=== PATIENT | male | born 1970 | race Caucasian/White ===

== ENCOUNTER 2020-06-27 19:15 | Emergency (ER) | payer SELFPAY ==
[2020-06-27 19:26] VITALS: BP 121/73; PULSE 124; RESP 14; TEMP 36.7; O2SAT 96; BMI 26.2
--- NOTE | 2020-06-27 19:43 | XR_ITS ---
WS: [id number] Left foot, 3 views, 06/27/2020 Clinical Data: injury Comparison: Left foot, 12/06/2018. Findings: There are erosions of the lateral aspects of the second through fifth metatarsals. There is an erosio n of the medial aspect of the distal left first metatarsal. There are hammertoes deformities of the s econd through fifth toes. No fractures or dislocations are seen. No definite osteomyelitis is present . There is no significant soft tissue swelling. XR/XR foot LT min 3V* [id number] Impression: 1. Erosive changes of the first through fifth metatarsal heads which are most l ikely arthritic. 2. Hammertoes deformity second through fifth toes.
--- NOTE | 2020-06-27 19:44 | W.ED.EXTPRO ---
HPI - Extremity Problem General: Chief complaint: Extremity Injury, Lower Stated complaint: hole in foot/ possible infection Time Seen by Provider: 06/27/20 19:39 Source: patient Mode of arrival: ambulatory Limitations: no limitations History of Present Illness: HPI Narrative: 49-year-old male who states he had a chronic ulcer to his left lower foot since 2016. He states that he has not taken his great care lately and is concerned it could be infected as he had slight erythema. Denies any drainage. He denies any fevers. Denies any worsening or improving factors. He states he is to follow-up with wound care but does not anymore. Associated symptoms: Deny chest pain, fever(s) or rash Review of Systems Const: Denies: fever(s), chills, body aches or change in appetite Eyes: Denies: blurry vision or eye discomfort ENMT: Denies: throat pain or dental pain Card: Denies: chest pain Resp: Denies: dyspnea GI: Denies: abdominal pain, nausea, vomiting or diarrhea : Denies: dysuria Musc: Denies: neck pain or back pain Skin/Breast: Reports: lesions; Denies: rash Neuro: Denies: headache(s) Psych: Denies: depression Bernard/Lymph: Denies: easy bruising All/Imm: Denies: urticaria Physical Exam Const: COMMON NORMALS: no acute distress, patient oriented x3 and healthy appearing HENMT: COMMON NORMALS: normocephalic and atraumatic HEAD & SCALP: normocephalic and atraumatic Eye: COMMON NORMALS: Equal, round and reactive pupils present and EOMs intact bilaterally PUPIL: Yes Equal, round and reactive pupils present Neck/C-Spine: COMMON NORMALS: full ROM and supple Chest: COMMONS NORMALS: normal inspection of the chest and normal palpation of entire chest wall Resp: COMMON NORMALS: normal respiratory effort, No retractions, No use of accessory muscles and clear to auscultation bilaterally AUSCULTATION: clear to auscultation bilaterally Cardio: COMMON NORMALS: regular rate, regular rhythm and No murmurs present (Cardio) RATE: regular rate RHYTHM: regular rhythm GI: COMMON NORMALS: Normal to inspection, nondistended, normoactive bowel sounds present, Soft to palpation, non-tender and no masses PALPATION: Yes Soft to palpation Extremity: COMMON NORMALS: full ROM NARRATIVE EXTREMITY EXAM: Small ulcer to plantar aspect of left foot with slight erythema with no purulent drainage. Neuro: COMMON NORMALS: patient oriented x3, moves all extremities and no focal motor deficits Psych: COMMON NORMALS: mental status grossly normal, Normal thought process present and cooperative THOUGHT PROCESS: Normal thought process present Skin: COMMON NORMALS: no rashes or lesions noted and no wounds GENERAL SKIN EXAM: no rashes or lesions noted Course Vital Signs: Vital signs: Vital Signs Temperature 98.0 F 06/27/20 19:26 Pulse Rate 116 H 06/27/20 21:45 Respiratory Rate 22 H 06/27/20 21:45 Blood Pressure 124/88 06/27/20 21:45 Pulse Oximetry 95 06/27/20 21:45 MDM - Extremity (Nontraumatic) MDM Narrative: Medical decision making narrative: Rock presents here with diabetic foot ulcer with cellulitis. I spoke to Dr. Jade went over CT scan and lab findings and Dr. Jade Keanu to see patient in his office tomorrow at 1130. Patient given IV vancomycin here. I informed patient he needs to be Dr. Jade's office at that time and is to return if worsening. He understands agrees to plan. Lab Data: Labs: Lab Results 06/27/20 Range/Units 19:50 WBC 21.6 H (4.0-10.0) 10^3/ uL RBC 5.03 (4.1-5.3) 10^6/u L Hgb 15.1 (11.7-16.6) g/dL Hct 45.6 (42.0-52.0) % MCV 90.7 (80-94) fL MCH 30.0 (28.0-34.0) pg MCHC 33.1 (30.0-36.0) g/dL RDW 12.2 (12.1-15.1) % Plt Count 270 (130-400) 10^3/c mm MPV 10.9 H (7.4-10.4) fL Neut % (Auto) 88.1 % Lymph % (Auto) 4.4 % [place] % (Auto) 6.1 % Eos % (Auto) 0.2 % Baso % (Auto) 0.5 % Neut # (Auto) 19.03 H (1.8-7.7) 10^3/u L Lymph # (Auto) 1.0 (0.8-4.8) 10^3/u L [place] # (Auto) 1.3 H (0.2-0.9) 10^3/u L Eos # (Auto) 0.0 (0.0-0.8) 10^3/u L Baso # (Auto) 0.1 (0.0-0.1) 10^3/u L Nucleated RBC % (a uto) 0 % Nucleated RBCs # 0.0 /100WBC Imaging Data^: Other Imaging: Radiologist's impression: [facility] [address] [place] [address] CT Scan Report Signed Patient: Rock Roman Unit #: [id number] : 1970 Age/Sex: 49 / M ADM Date: 06/27/20 Loc: ER Room/Bed: Attending Dr: Ordering Provider/Ordering MD: Milka Painting MD Date of Service: 06/27/20 Procedure(s): CT foot LT w con [id number] Accession Number(s): [id number] Report Number: [id number] PROCEDURE INFORMATION: Exam: CT Left Lower Extremity With Contrast, Foot Exam date and time: 06/27/2020 8:08 PM Age: 49 years old Clinical indication: Other: Non healiing sore on bottom of foot; Additional info: Cellulitis TECHNIQUE: Imaging protocol: CT of the Left lower extremity with intravenous contrast was performed. Exam focused on the foot. Radiation optimization: All CT scans at this facility use at least one of these dose optimization techniques: automated exposure control; mA and/or kV adjustment per patient size (includes targeted exams where dose is matched to clinical indication); or iterative reconstruction. Contrast material: OMNI 300; Contrast volume: 95 ml; Contrast route: INTRAVENOUS (IV); COMPARISON: CR XR foot LT min 3V* [id number] 06/27/2020 7:46 PM RADIATION DOSE METRICS: Total DLP (mGy-cm): 179.48 FINDINGS: Bones/joints: There are hammertoe deformities of the 2nd through 5th toes. No fracture is identified. There are erosive changes involving the distal head of the 2nd metatarsal and also the proximal articular surface of the 2nd proximal phalanx. The changes appear well corticated and appear more likely related to arthritis such as rheumatoid arthritis or gout. There is however soft tissue swelling surrounding the 2nd metatarsophalangeal joint with probable joint effusion and osteomyelitis is not entirely excluded. Further evaluation with MRI with without contrast may be helpful to exclude osteomyelitis. There mild erosions along the lateral aspects of the 3rd and 4th and 5th metatarsal heads which appear stable on the plain radiographs when compared with 12/06/2018. Soft tissues: There is abnormal skin thickening and edema along the plantar aspect of the foot with small ulcers identified at the level of the 2nd and 3rd metatarsophalangeal joints. These findings may represent foot ulcers with associated cellulitis. No definite abscess collection is identified. There is also joint space narrowing and erosion of the articular surfaces involving the 2nd proximal interphalangeal joint but without soft tissue swelling. These changes however have progressed on the plain radiographs. CT/CT foot LT w con [id number] IMPRESSION: 1. Plantar foot ulcer and cellulitis as described without abscess. 2. Degenerative changes in the 2nd through 5th MTP joints. 3. Osteomyelitis at the level of the distal left 2nd metatarsal and left 2nd MTP joint is not excluded, further evaluation with MRI suggested. Discharge Plan Discharge Patient Disposition: Home Clinical Impression: Chronic foot ulcer Qualifiers: Laterality: left Non-pressure ulcer stage: unspecified non-pressure ulcer stage Qualified Code(s): L97.529 - Non-pressure chronic ulcer of other part of left foot with unspecified severity Condition: Stable Prescriptions: No Action metformin 1,000 mg PO BID RF: 0 Discharge Orders: Discharge Order (Routine); Ordered 06/27/20 Ordered By: Milka Painting Referrals: Andrea Jade DPM [Physician] - 1-3 days (06/28/20 at 1130) Claudia Farnsworth FNP [Primary Care Provider] - Discharge Diet: Advance as tolerated Discharge Activity: Resume usual activity Patient Instructions: Diabetic Foot Ulcers (ED) Discharge Date/Time: 06/27/20 22:09 Coding Level of Care Code 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
[2020-06-27 19:55] LABS: Basophils # 0.1 10^3/uL (0.0-0.1); Basophils % 0.5 %; Eosinophils % 0.2 %; Hematocrit 45.6 % (42.0-52.0); Hemoglobin 15.1 g/dL (11.7-16.6); Lymphocytes % 4.4 %; Mean Corpuscular HGB Conc 33.1 g/dL (30.0-36.0); Mean Corpuscular Volume 90.7 fL (80-94); Mean Platelet Volume 10.9 fL (7.4-10.4); Monocytes # 1.3 10^3/uL (0.2-0.9); Monocytes % 6.1 %; Neutrophils # 19.03 10^3/uL (1.8-7.7); Neutrophils % 88.1 %; Nucleated Red Blood Cells % 0 %; Platelet Count 270 10^3/cmm (130-400); Red Blood Count 5.03 10^6/uL (4.1-5.3); Red Cell Distribution Width 12.2 % (12.1-15.1); White Blood Count 21.6 10^3/uL (4.0-10.0)
--- NOTE | 2020-06-27 19:58 | CTR_ITS ---
PROCEDURE INFORMATION: Exam: CT Left Lower Extremity With Contrast, Foot Exam date and time: 06/27/2020 8:08 PM Age: 49 years old Clinical indication: Other: Non healiing sore on bottom of foot; Additional info: Cellulitis TECHNIQUE: Imaging protocol: CT of the Left lower extremity with intravenous contrast was performed. Exam focused on the foot. Radiation optimization: All CT scans at this facility use at least one of these dose optimization techniques: automated exposure control; mA and/or kV adjustment per patient size (includes targeted exams where dose is matched to clinical indication); or iterative reconstruction. Contrast material: OMNI 300; Contrast volume: 95 ml; Contrast route: INTRAVENOUS (IV); COMPARISON: CR XR foot LT min 3V* [id number] 06/27/2020 7:46 PM RADIATION DOSE METRICS: Total DLP (mGy-cm): 179.48 FINDINGS: Bones/joints: There are hammertoe deformities of the 2nd through 5th toes. No fracture is identified. There are erosive changes involving the distal head of the 2nd metatarsal and also the proximal articular surface of the 2nd proximal phalanx. The changes appear well corticated and appear more likely related to arthritis such as rheumatoid arthritis or gout. There is however soft tissue swelling surrounding the 2nd metatarsophalangeal joint with probable joint effusion and osteomyelitis is not entirely excluded. Further evaluation with MRI with without contrast may be helpful to exclude osteomyelitis. There mild erosions along the lateral aspects of the 3rd and 4th and 5th metatarsal heads which appear stable on the plain radiographs when compared with 12/06/2018. Soft tissues: There is abnormal skin thickening and edema along the plantar aspect of the foot with small ulcers identified at the level of the 2nd and 3rd metatarsophalangeal joints. These findings may represent foot ulcers with associated cellulitis. No definite abscess collection is identified. There is also joint space narrowing and erosion of the articular surfaces involving the 2nd proximal interphalangeal joint but without soft tissue swelling. These changes however have progressed on the plain radiographs. CT/CT foot LT w con [id number] IMPRESSION: 1. Plantar foot ulcer and cellulitis as described without abscess. 2. Degenerative changes in the 2nd through 5th MTP joints. 3. Osteomyelitis at the level of the distal left 2nd metatarsal and left 2nd MTP joint is not excluded, further evaluation with MRI suggested. Radiation Dose CTDIVOL = (mGy): DLP = 179.48 (mGy-cm)
[2020-06-27 20:04] VITALS: PULSE 116; RESP 20; O2SAT 96
[2020-06-27] MEDS: vancomycin 1,000 MG in sodium chloride 0.9% 250 ML 250 MG IV (20:18)
[2020-06-27] MEDS: iohexol 300 mg/mL 100 mL Btl IV (20:22)
[2020-06-27 20:46] VITALS: BP 156/80; PULSE 112; RESP 24; O2SAT 98
[2020-06-27 21:45] VITALS: BP 124/88; PULSE 116; RESP 22; O2SAT 95
--- NOTE | 2020-06-27 21:45 | PC.NURSE ---
informed dr. limon of hr of 116 beats/min and rr of 22/min verbalized understanding vo with readback to continue with dc.
== END 2020-06-27 22:09 | disposition home or self-care (01) ==
PROVIDERS: Emergency Provider Emergency Medicine; PCP Nurse Practitioner
DX: L97.529 Non-pressure chronic ulcer of other part of left foot with unspecified severity (principal)
CPT/HCPCS: 12345; 36415; 73630; 73701; 85025; 96365; 99283; J3370; J7050; Q9967

== ENCOUNTER → 2020-06-28 11:55 | Outpatient (BNVA) | payer SELFPAY | PROVIDERS: PCP Nurse Practitioner; Visit Provider Podiatrist Foot & Ankle Surgery | DX: M86.9 Osteomyelitis, unspecified (principal); L97.529 Non-pressure chronic ulcer of other part of left foot with unspecified severity | CPT/HCPCS: 87070; 87075; 87077; 87186; 87205 ==

== ENCOUNTER 2020-07-06 09:48 | Outpatient (CLI) | payer SELFPAY | END 2020-07-06 09:49 | disposition home or self-care (01) | LOC: WOUND 09:48 | PROVIDERS: PCP Nurse Practitioner; Visit Provider Surgery | DX: E11.621 Type 2 diabetes mellitus with foot ulcer (principal); L97.422 Non-pressure chronic ulcer of left heel and midfoot with fat layer exposed | CPT/HCPCS: 11042; G0463; L2999; L3260 ==

== ENCOUNTER 2020-07-13 10:39 | Outpatient (CLI) | payer SELFPAY ==
--- NOTE | 2020-07-13 11:00 | MR_ITS ---
WS: [id number] MRI LEFT FOOT with and without CONTRAST. COMPARISON: CT LEFT foot 06/27/2020 Multiplanar, multisequence imaging is performed with and without contrast. There is very minimal enhancement in the soft tissues along the plantar surface of the second proxima l phalanx. On the noncontrast examination there is increased T2 signal and soft tissue thickening. Th e area of enhancement measures 1.9 x 1.2 cm. There is enhancement involving the cortex and the perios teum of the second metatarsal head. Soft tissue enhancement. There is also enhancement extending into the second metatarsophalangeal joint. Erosions involve the second metatarsal head and the proximal p halanx of the second toe. MR/MR foot LT wo/w con [id number] IMPRESSION: 1. Abnormal enhancement of the periosteum and soft tissues surrounding the sec ond metatarsal head, second metatarsophalangeal joint space and adjacent soft t issues. Consistent with osteomyelitis involving the periosteum and cellulitis. 2. There are erosions involving the second metatarsal heads which may be secon hoa to inflammatory arthritis or the osteomyelitis.
== END 2020-07-13 10:40 | disposition home or self-care (01) ==
LOC: RADSHAW 10:41
PROVIDERS: PCP Nurse Practitioner Family; Visit Provider Podiatrist Foot & Ankle Surgery
DX: M86.9 Osteomyelitis, unspecified (principal); M85.872 Other specified disorders of bone density and structure, left ankle and foot
CPT/HCPCS: 73720; A9579

== ENCOUNTER 2020-07-13 13:58 | Outpatient (CLI) | payer SELFPAY | END 2020-07-13 13:59 | disposition home or self-care (01) | LOC: WOUND 13:59 | PROVIDERS: PCP Nurse Practitioner Family; Visit Provider Nurse Practitioner Family | DX: E11.621 Type 2 diabetes mellitus with foot ulcer (principal); L97.422 Non-pressure chronic ulcer of left heel and midfoot with fat layer exposed | CPT/HCPCS: 11042 ==

== ENCOUNTER 2020-07-20 14:18 | Outpatient (CLI) | payer SELFPAY | END 2020-07-20 14:19 | disposition home or self-care (01) | LOC: WOUND 14:19 | PROVIDERS: PCP Nurse Practitioner Family; Visit Provider Surgery | DX: E11.621 Type 2 diabetes mellitus with foot ulcer (principal); L97.422 Non-pressure chronic ulcer of left heel and midfoot with fat layer exposed | CPT/HCPCS: 11042 ==

== ENCOUNTER 2020-07-24 09:11 | Outpatient (RCR) | payer SELFPAY ==
--- NOTE | 2020-07-24 09:58 | XR_ITS ---
WS: [id number] PORTABLE CHEST HISTORY: picc placement COMPARISON: 10/01/2016 Right-sided PICC line with tip in the distal SVC. Lungs are clear and well expanded. No pleural effusion or pneumothorax. Cardiac size: Normal. Mediastinum/Aorta: Normal mediastinum. No osseous abnormality seen. XR/XR chest 1V portable [id number] IMPRESSION: Satisfactory RIGHT PICC line placement.
[2020-07-24 11:00] LABS: Anion Gap 18.1 (5-19); Blood Urea Nitrogen 16 mg/dL (6-20); Calcium 9.2 mg/dL (8.5-10.5); Carbon Dioxide 25 mmol/L (22-29); Chloride 96 mmol/L (98-107); Glucose 409 mg/dL (65-115); Osmolality Calculated 298 mOsm/kg (285-295); Potassium 4.1 mmol/L (3.5-5.1); Sodium 135 mmol/L (136-145)
[2020-07-25 07:05] VITALS: BP 119/78; PULSE 98; RESP 18; TEMP 36.3; O2SAT 100
[2020-07-25 17:29] VITALS: BP 129/75; PULSE 102; RESP 18; TEMP 36.4; O2SAT 99
== END 2020-07-25 23:59 | disposition home or self-care (01) ==
LOC: OPS 09:11
PROVIDERS: PCP Nurse Practitioner Family; Visit Provider Surgery
DX: M86.8X8 Other osteomyelitis, other site (principal)
CPT/HCPCS: 36569; 36592; 71045; 80048; 96365; 96366; J3370; J7040

== ENCOUNTER 2020-07-27 14:43 | Outpatient (CLI) | payer SELFPAY | END 2020-07-27 14:44 | disposition home or self-care (01) | LOC: WOUND 14:43 | PROVIDERS: PCP Nurse Practitioner Family; Visit Provider Surgery | DX: E11.621 Type 2 diabetes mellitus with foot ulcer (principal); L97.422 Non-pressure chronic ulcer of left heel and midfoot with fat layer exposed | CPT/HCPCS: 11042 ==

== ENCOUNTER 2020-08-03 06:41 | Outpatient (RCR) | payer SELFPAY ==
[2020-07-26 07:07] VITALS: BMI 21.9
[2020-07-26 07:09] VITALS: BP 106/86; PULSE 105; RESP 18; TEMP 36.3; O2SAT 98
[2020-07-26 07:49] LABS: Vancomycin Trough 12.9 ug/mL (10-15)
[2020-07-26 17:26] VITALS: BP 112/87; PULSE 98; RESP 18; TEMP 36.7; O2SAT 98
[2020-07-27 08:03] VITALS: BP 131/73; PULSE 97; RESP 18; TEMP 35.8; O2SAT 100
[2020-07-27 17:30] VITALS: BP 122/75; PULSE 98; RESP 18; TEMP 36.5; O2SAT 98
[2020-07-28 07:06] VITALS: BP 96/64; PULSE 102; RESP 18; TEMP 36.8; O2SAT 99
[2020-07-28 17:09] VITALS: BP 98/70; PULSE 102; RESP 18; TEMP 36.8; O2SAT 98
[2020-07-29 07:24] VITALS: BP 115/74; PULSE 105; RESP 18; TEMP 36.3; O2SAT 99
[2020-07-29 16:44] VITALS: BP 112/78; PULSE 107; RESP 18; TEMP 36.8; O2SAT 98
[2020-07-30 05:59] VITALS: BP 136/93; PULSE 106; RESP 18; TEMP 36.4; O2SAT 99
[2020-07-30 16:30] VITALS: BP 109/75; PULSE 101; RESP 18; TEMP 36.7; O2SAT 98
[2020-07-30 17:50] LABS: Anion Gap 13.8 (5-19); Blood Urea Nitrogen 15 mg/dL (6-20); Calcium 9.3 mg/dL (8.5-10.5); Carbon Dioxide 30 mmol/L (22-29); Chloride 96 mmol/L (98-107); Glucose 443 mg/dL (65-115); Osmolality Calculated 302 mOsm/kg (285-295); Potassium 3.8 mmol/L (3.5-5.1); Sodium 136 mmol/L (136-145)
[2020-07-30 19:39] LABS: Vancomycin Trough 31.8 ug/mL (10-15)
[2020-07-31 16:27] VITALS: BP 107/83; PULSE 103; RESP 18; TEMP 36.7; O2SAT 99
[2020-08-01 07:18] VITALS: BP 126/76; PULSE 101; RESP 18; TEMP 36.3; O2SAT 99
[2020-08-02 07:10] VITALS: BP 120/81; PULSE 78; RESP 18; TEMP 36.2; O2SAT 96
--- NOTE | 2020-08-02 07:13 | SUR.PREOP ---
dose missed on 08-01-20529 due to vanc trough day before being too high. instructed to miss dose per pharmacy.
[2020-08-02 07:27] LABS: Glomerular Filtration Rate 78.8 mL/min (90-130)
[2020-08-02 07:42] LABS: Vancomycin Trough 12.5 ug/mL (10-15)
[2020-08-02 16:38] VITALS: BP 133/70; PULSE 103; RESP 18; TEMP 36.9; O2SAT 96
[2020-08-03 07:28] VITALS: BP 113/71; PULSE 86; RESP 18; TEMP 36.2; O2SAT 100
[2020-08-03 16:45] VITALS: BP 116/84; PULSE 110; RESP 18; TEMP 36.6; O2SAT 99
[2020-08-04 08:07] VITALS: BP 126/74; PULSE 87; RESP 18; TEMP 36.4; O2SAT 97
[2020-08-04 16:41] VITALS: BP 110/73; PULSE 103; RESP 18; TEMP 36.6; O2SAT 98
[2020-08-05 07:28] LABS: Basophils # 0.1 10^3/uL (0.0-0.1); Basophils % 1.4 %; Eosinophils # 0.4 10^3/uL (0.0-0.8); Eosinophils % 6.3 %; Hemoglobin 14.6 g/dL (11.7-16.6); Lymphocytes # 1.4 10^3/uL (0.8-4.8); Lymphocytes % 20.6 %; Mean Corpuscular HGB Conc 32.4 g/dL (30.0-36.0); Mean Corpuscular Hemoglobin 29.6 pg (28.0-34.0); Mean Corpuscular Volume 91.3 fL (80-94); Monocytes # 0.6 10^3/uL (0.2-0.9); Monocytes % 8.2 %; Neutrophils # 4.38 10^3/uL (1.8-7.7); Neutrophils % 63.1 %; Nucleated Red Blood Cells % 0 %; Platelet Count 274 10^3/cmm (130-400); Red Blood Count 4.93 10^6/uL (4.1-5.3); Red Cell Distribution Width 12.4 % (12.1-15.1)
[2020-08-05 07:40] VITALS: BP 132/73; PULSE 88; RESP 18; TEMP 36.3; O2SAT 98
--- NOTE | 2020-08-05 07:44 | SUR.PREOP ---
Patient here for IV Vancomycin infusion. Labs to be drawn before infusion. Labs obtained in right AC and sent to lab. Able to flush PICC line without difficulty, but no blood return noted. Infusion started and infusing without problems.
[2020-08-05 07:53] LABS: Anion Gap 12.6 (5-19); Blood Urea Nitrogen 10 mg/dL (6-20); Calcium 9.2 mg/dL (8.5-10.5); Carbon Dioxide 27 mmol/L (22-29); Chloride 98 mmol/L (98-107); Glomerular Filtration Rate 78.8 mL/min (90-130); Osmolality Calculated 305 mOsm/kg (285-295); Potassium 4.6 mmol/L (3.5-5.1); Sodium 133 mmol/L (136-145)
[2020-08-05 07:54] LABS: Vancomycin Trough 17.5 ug/mL (10-15)
[2020-08-05 08:05] LABS: Glucose 646 mg/dL (65-115)
--- NOTE | 2020-08-05 08:17 | SUR.PREOP ---
reported critical glucose level of [address] Hayes. Patient only takes Metformin 1000mg po bid for diabetes. Patient denied taking the med last night or this morning. Orders obtained to take Metformin 1000 mg po now and get back on schedule.
[2020-08-05] MEDS: insulin regular-human 100 units/1 mL 10 UNIT SUBCUT (09:00)
--- NOTE | 2020-08-05 09:09 | SUR.PREOP ---
Patient refused the Metformin 1000 mg po. Orders obtained for 10 units Insulin SQ given to left upper outer arm. Dr. Hayes in to see patient and suggested he go to ER and be closer monitored while they continue to attempt to lower blood glucose level. Patient ambulated to ER on own.
[2020-08-05 17:23] VITALS: BP 112/79; PULSE 99; RESP 18; TEMP 36.8; O2SAT 97
[2020-08-06 08:55] VITALS: BP 109/81; PULSE 102; RESP 18; TEMP 36.1; O2SAT 97
[2020-08-06 16:46] VITALS: BP 129/88; PULSE 96; RESP 18; TEMP 36.2; O2SAT 98
[2020-08-07 07:04] VITALS: BP 133/75; PULSE 70; RESP 18; TEMP 36.3; O2SAT 100
[2020-08-07 16:43] VITALS: BP 93/62; PULSE 104; RESP 18; TEMP 36.3; O2SAT 99
--- NOTE | 2020-08-08 06:46 | XRR_ITS ---
PROCEDURE INFORMATION: Exam: XR Chest, 1 View Exam date and time: 08/08/2020 7:01 AM Age: 50 years old Clinical indication: PICC placement TECHNIQUE: Imaging protocol: XR of the chest Views: 1 view. COMPARISON: CR XR chest 1V portable [id number] 07/24/2020 10:19 AM FINDINGS: Tubes, catheters and devices: There is a right arm PICC with the tip at/near the cavoatrial junction. Lungs: No lung consolidation or pulmonary edema. Pleural space: No pleural effusion or pneumothorax. Heart/Mediastinum: The cardiac silhouette is not enlarged. The mediastinal contours are normal. Bones/joints: No acute osseous abnormality. XR/XR chest 1V portable [id number] IMPRESSION: PICC tip at/near the cavoatrial junction.
[2020-08-08 07:09] VITALS: BP 111/64; PULSE 98; RESP 18; TEMP 36.2; O2SAT 98
[2020-08-08 17:21] VITALS: BP 103/66; PULSE 97; RESP 18; TEMP 36.2; O2SAT 99
[2020-08-09 07:06] VITALS: BP 108/85; PULSE 93; RESP 18; TEMP 36; O2SAT 98
[2020-08-09 07:40] LABS: Vancomycin Trough 17.1 ug/mL (10-15)
[2020-08-09 16:37] VITALS: BP 98/61; PULSE 93; RESP 18; TEMP 36.4; O2SAT 98
[2020-08-10 06:55] VITALS: BP 123/76; PULSE 94; RESP 18; TEMP 36.1; O2SAT 99
[2020-08-10 17:17] VITALS: BP 112/78; PULSE 101; RESP 18; TEMP 36.8; O2SAT 98
[2020-08-11 07:42] VITALS: BP 124/76; PULSE 86; RESP 18; TEMP 36.3; O2SAT 100
[2020-08-11 16:48] VITALS: BP 114/74; PULSE 98; RESP 18; TEMP 37.1; O2SAT 98
[2020-08-12 06:57] VITALS: BP 106/68; PULSE 94; RESP 18; TEMP 36.3; O2SAT 99
[2020-08-12 16:56] VITALS: BP 106/64; PULSE 101; RESP 18; TEMP 36.3; O2SAT 99
[2020-08-12 17:27] LABS: Basophils # 0.1 10^3/uL (0.0-0.1); Basophils % 1.4 %; Eosinophils # 0.6 10^3/uL (0.0-0.8); Eosinophils % 7.2 %; Hematocrit 46.9 % (42.0-52.0); Hemoglobin 15.5 g/dL (11.7-16.6); Lymphocytes # 2.1 10^3/uL (0.8-4.8); Lymphocytes % 26.8 %; Mean Corpuscular Hemoglobin 30.2 pg (28.0-34.0); Mean Corpuscular Volume 91.4 fL (80-94); Mean Platelet Volume 10.7 fL (7.4-10.4); Monocytes # 0.7 10^3/uL (0.2-0.9); Monocytes % 8.5 %; Neutrophils # 4.25 10^3/uL (1.8-7.7); Neutrophils % 55.7 %; Nucleated Red Blood Cells % 0 %; Platelet Count 357 10^3/cmm (130-400); Red Blood Count 5.13 10^6/uL (4.1-5.3); Red Cell Distribution Width 12.4 % (12.1-15.1); White Blood Count 7.6 10^3/uL (4.0-10.0)
[2020-08-12 17:42] LABS: Anion Gap 15.2 (5-19); Blood Urea Nitrogen 17 mg/dL (6-20); Calcium 9.4 mg/dL (8.5-10.5); Carbon Dioxide 28 mmol/L (22-29); Chloride 99 mmol/L (98-107); Glomerular Filtration Rate 78.8 mL/min (90-130); Glucose 317 mg/dL (65-115); Osmolality Calculated 300 mOsm/kg (285-295); Potassium 4.2 mmol/L (3.5-5.1); Sodium 138 mmol/L (136-145)
[2020-08-13 05:54] VITALS: BP 125/72; PULSE 100; RESP 18; TEMP 36.7; O2SAT 100
[2020-08-13 16:57] VITALS: BP 105/79; PULSE 93; RESP 18; TEMP 36.2; O2SAT 99
[2020-08-14 06:56] VITALS: BP 128/83; PULSE 85; RESP 18; TEMP 36.2; O2SAT 100
[2020-08-14 17:00] VITALS: BP 114/73; PULSE 84; RESP 16; TEMP 36.8; O2SAT 99
[2020-08-15 07:00] VITALS: BP 138/83; PULSE 94; RESP 18; TEMP 36.6; O2SAT 100
[2020-08-15 19:09] VITALS: BP 122/74; PULSE 80; RESP 18; TEMP 36.4; O2SAT 97
[2020-08-16 07:10] VITALS: BP 118/77; PULSE 85; RESP 18; TEMP 36.1; O2SAT 100
[2020-08-16 07:32] LABS: Blood Urea Nitrogen 15 mg/dL (6-20); Calcium 8.7 mg/dL (8.5-10.5); Carbon Dioxide 29 mmol/L (22-29); Chloride 102 mmol/L (98-107); Creatinine Clr Calc Pharmacy 127.3992; Glomerular Filtration Rate 101.9 mL/min (90-130); Glucose 275 mg/dL (65-115); Osmolality Calculated 299 mOsm/kg (285-295); Sodium 139 mmol/L (136-145)
[2020-08-16 07:50] LABS: Vancomycin Trough 18.8 ug/mL (10-15)
[2020-08-16 17:49] VITALS: BP 95/67; PULSE 98; RESP 18; TEMP 36.7; O2SAT 100
[2020-08-17 06:51] VITALS: BP 123/81; PULSE 92; RESP 18; TEMP 36.8; O2SAT 99
[2020-08-17 17:33] VITALS: BP 113/72; PULSE 92; RESP 18; TEMP 36.5; O2SAT 99
[2020-08-18 07:18] VITALS: BP 114/76; PULSE 83; RESP 18; TEMP 36.1; O2SAT 95
[2020-08-18 16:43] VITALS: BP 111/73; PULSE 101; RESP 18; TEMP 36.4; O2SAT 100
[2020-08-19 07:11] VITALS: BP 111/69; PULSE 91; RESP 18; TEMP 36.2; O2SAT 100
[2020-08-19 17:00] VITALS: BP 94/69; PULSE 98; RESP 18; TEMP 36.4; O2SAT 99
[2020-08-20 07:13] VITALS: BP 98/73; PULSE 97; RESP 18; TEMP 36.4; O2SAT 100
[2020-08-20 16:52] VITALS: BP 110/71; PULSE 76; RESP 18; TEMP 36.6; O2SAT 96
[2020-08-21 07:18] VITALS: BP 114/73; PULSE 89; RESP 18; TEMP 36.2; O2SAT 100
[2020-08-21 17:12] VITALS: BP 119/75; PULSE 103; RESP 18; TEMP 36.3; O2SAT 99
[2020-08-22 07:25] VITALS: BP 117/80; PULSE 93; RESP 18; TEMP 36.3; O2SAT 100
[2020-08-22 17:33] VITALS: BP 114/75; PULSE 96; RESP 18; TEMP 36.6; O2SAT 98
[2020-08-23 17:04] VITALS: BP 137/83; PULSE 73; RESP 18; TEMP 36.1; O2SAT 97
[2020-08-24 08:21] VITALS: BP 104/69; PULSE 98; RESP 18; TEMP 36.3; O2SAT 98
[2020-08-24 17:29] VITALS: BP 97/68; PULSE 102; RESP 18; TEMP 36.5; O2SAT 98
[2020-08-25 07:17] LABS: Basophils # 0.1 10^3/uL (0.0-0.1); Basophils % 1.5 %; Eosinophils # 0.5 10^3/uL (0.0-0.8); Hematocrit 47.9 % (42.0-52.0); Hemoglobin 15.6 g/dL (11.7-16.6); Lymphocytes % 26.3 %; Mean Corpuscular HGB Conc 32.6 g/dL (30.0-36.0); Mean Corpuscular Hemoglobin 29.9 pg (28.0-34.0); Mean Corpuscular Volume 91.9 fL (80-94); Mean Platelet Volume 10.5 fL (7.4-10.4); Monocytes # 0.7 10^3/uL (0.2-0.9); Monocytes % 9.7 %; Neutrophils % 56.2 %; Nucleated Red Blood Cells % 0 %; Platelet Count 273 10^3/cmm (130-400); Red Blood Count 5.21 10^6/uL (4.1-5.3); Red Cell Distribution Width 12.5 % (12.1-15.1); White Blood Count 7.5 10^3/uL (4.0-10.0)
[2020-08-25 07:38] VITALS: BP 122/81; PULSE 89; RESP 18; TEMP 36.1; O2SAT 99
[2020-08-25 08:02] LABS: Anion Gap 12.6 (5-19); Blood Urea Nitrogen 14 mg/dL (6-20); Calcium 9.2 mg/dL (8.5-10.5); Carbon Dioxide 30 mmol/L (22-29); Chloride 99 mmol/L (98-107); Glucose 215 mg/dL (65-115); Osmolality Calculated 291 mOsm/kg (285-295); Potassium 4.6 mmol/L (3.5-5.1); Sodium 137 mmol/L (136-145)
[2020-08-25 08:05] LABS: Vancomycin Trough 16.9 ug/mL (10-15)
[2020-08-25 16:12] VITALS: BP 134/83; PULSE 95; RESP 18; TEMP 36.5; O2SAT 100
== END 2020-08-25 23:59 | disposition home or self-care (01) ==
LOC: OPS 06:41
PROVIDERS: PCP Nurse Practitioner Family; Visit Provider Surgery
DX: M86.9 Osteomyelitis, unspecified (principal)
CPT/HCPCS: 15852; 36415; 36592; 71045; 80048; 80202; 82565; 85025; 96365; 96366; 96367; 96372; J1815; J3370; J7040; J7050

== ENCOUNTER 2020-08-03 14:22 | Outpatient (CLI) | payer SELFPAY | END 2020-08-03 14:23 | disposition home or self-care (01) | LOC: WOUND 14:22 | PROVIDERS: PCP Nurse Practitioner Family; Visit Provider Surgery | DX: E11.621 Type 2 diabetes mellitus with foot ulcer (principal); L97.422 Non-pressure chronic ulcer of left heel and midfoot with fat layer exposed | CPT/HCPCS: 11042 ==

== ENCOUNTER 2020-08-05 09:39 | Emergency (ER) | payer SELFPAY ==
[2020-08-05 09:53] VITALS: BP 150/89; PULSE 90; RESP 16; TEMP 36.7; O2SAT 96; BMI 26.2
[2020-08-05 10:06] VITALS: BP 142/82; PULSE 83; RESP 18; TEMP 36.7; O2SAT 99
--- NOTE | 2020-08-05 10:07 | W.ED.RECABL ---
HPI - Recheck/Abnormal Lab/Rx General: Chief Complaint: Recheck/Abnormal Lab/Rx Stated Complaint: LOW BS Time Seen by Provider: 08/05/20 09:42 Source: patient Mode of arrival: ambulatory Limitations: no limitations History of Present Illness: HPI narrative: Wilder is a 50-year-old male who was get an outpatient transfusion of vancomycin and was hyperglycemic. He states his blood sugar was over 600 there they gave him 10 units of subcu insulin. Patient's blood sugar here is 460. He denies any pain. He states that he has not been taking his metformin. Review of Systems Const: Denies: fever(s), chills, body aches or change in appetite Eyes: Denies: blurry vision or eye discomfort ENMT: Denies: throat pain or dental pain Card: Denies: chest pain Resp: Denies: dyspnea GI: Denies: abdominal pain, nausea, vomiting or diarrhea : Denies: dysuria Musc: Denies: neck pain or back pain Skin/Breast: Denies: rash Neuro: Denies: headache(s) Psych: Denies: depression Bernard/Lymph: Denies: easy bruising All/Imm: Denies: urticaria PFSH ED PFSH: Surgical History History of carpal tunnel release History of foot surgery History of nasal surgery History of tonsillectomy Social History Smoking and tobacco status: never smoked Current occupational status: unemployed 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 Physical Exam Const: COMMON NORMALS: no acute distress, patient oriented x3 and healthy appearing HENMT: COMMON NORMALS: normocephalic and atraumatic HEAD & SCALP: normocephalic and atraumatic Eye: COMMON NORMALS: Equal, round and reactive pupils present and EOMs intact bilaterally PUPIL: Yes Equal, round and reactive pupils present Neck/C-Spine: COMMON NORMALS: full ROM and supple Chest: COMMONS NORMALS: normal inspection of the chest and normal palpation of entire chest wall Resp: COMMON NORMALS: normal respiratory effort, No retractions, No use of accessory muscles and clear to auscultation bilaterally AUSCULTATION: clear to auscultation bilaterally Cardio: COMMON NORMALS: regular rate, regular rhythm and No murmurs present (Cardio) RATE: regular rate RHYTHM: regular rhythm GI: COMMON NORMALS: Normal to inspection, nondistended, normoactive bowel sounds present, Soft to palpation, non-tender and no masses PALPATION: Yes Soft to palpation Extremity: COMMON NORMALS: normal to inspection and full ROM Neuro: COMMON NORMALS: patient oriented x3, moves all extremities and no focal motor deficits Psych: COMMON NORMALS: mental status grossly normal, Normal thought process present and cooperative THOUGHT PROCESS: Normal thought process present Skin: COMMON NORMALS: no rashes or lesions noted and no wounds GENERAL SKIN EXAM: no rashes or lesions noted Course Vital Signs: Vital signs: Vital Signs Temperature 98.1 F 08/05/20 10:16 Pulse Rate 90 08/05/20 10:16 Respiratory Rate 16 08/05/20 10:16 Blood Pressure 142/82 08/05/20 10:16 Pulse Oximetry 100 08/05/20 10:16 MDM - Recheck/Abnormal Lab/Rx MDM Narrative: Medical decision making narrative: Patient presents here with hyperglycemia. His blood sugar here is improved. He has no signs of DKA. He is stable for discharge and return if worsening. Lab Data: Labs: Lab Results 08/05/20 08/05/20 Range/Units 10:30 10:30 WBC 6.8 (4.0-10.0) 10^3/ uL RBC 4.87 (4.1-5.3) 10^6/u L Hgb 14.6 (11.7-16.6) g/dL Hct 43.8 (42.0-52.0) % MCV 89.9 (80-94) fL MCH 30.0 (28.0-34.0) pg MCHC 33.3 (30.0-36.0) g/dL RDW 12.4 (12.1-15.1) % Plt Count 259 (130-400) 10^3/c mm MPV 10.8 H (7.4-10.4) fL Neut % (Auto) 62.6 % Lymph % (Auto) 22.3 % [place] % (Auto) 8.3 % Eos % (Auto) 5.2 % Baso % (Auto) 1.2 % Neut # (Auto) 4.25 (1.8-7.7) 10^3/u L Lymph # (Auto) 1.5 (0.8-4.8) 10^3/u L [place] # (Auto) 0.6 (0.2-0.9) 10^3/u L Eos # (Auto) 0.4 (0.0-0.8) 10^3/u L Baso # (Auto) 0.1 (0.0-0.1) 10^3/u L Nucleated RBC % (a uto) 0 % Nucleated RBCs # 0.0 /100WBC Sodium 133 L (136-145) mmol/L Potassium 4.3 (3.5-5.1) mmol/L Chloride 99 (98-107) mmol/L Carbon Dioxide 27 (22-29) mmol/L Anion Gap 11.3 (5-19) BUN 10 (6-20) mg/dL Creatinine 0.9 (0.7-1.2) mg/dL GFR Calculation 89.0 L (90-130) mL/min Glucose 463 H (65-115) mg/dL Calculated Osmolal ity 295 (285-295) mOsm/k g Calcium 9.2 (8.5-10.5) mg/dL Total Bilirubin 0.5 (0.15-1.2) mg/dL AST 10 (0-40) U/L ALT 13 (0-41) U/L Alkaline Phosphata se 109 (40-130) IU/L Total Protein 6.4 L (6.6-8.7) g/dL Albumin 3.7 (3.5-5.2) g/dL Globulin 2.7 (1.3-4.6) g/dL Discharge Plan Discharge Patient Disposition: Home Clinical Impression: Hyperglycemia Condition: Stable Prescriptions: No Action metformin 1,000 mg Tablet 1,000 mg PO BID RF: 0 Discharge Orders: Discharge Order (Routine); Ordered 08/05/20 Ordered By: Milka Painting Referrals: Rambo Gardner NP [Primary Care Provider] - Discharge Diet: Advance as tolerated Discharge Activity: Resume usual activity Patient Instructions: Diabetic Hyperglycemia (ED) Discharge Date/Time: 08/05/20 11:33 Coding Level of Care Code ED Reprographics Technician for Chg 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
[2020-08-05 10:16] VITALS: BP 142/82; PULSE 90; RESP 16; TEMP 36.7; O2SAT 100
[2020-08-05] MEDS: sodium chloride 0.9% 1,000 ML 999 ML IV (10:22)
[2020-08-05 10:41] LABS: Basophils # 0.1 10^3/uL (0.0-0.1); Basophils % 1.2 %; Eosinophils # 0.4 10^3/uL (0.0-0.8); Eosinophils % 5.2 %; Hematocrit 43.8 % (42.0-52.0); Hemoglobin 14.6 g/dL (11.7-16.6); Lymphocytes # 1.5 10^3/uL (0.8-4.8); Lymphocytes % 22.3 %; Mean Corpuscular HGB Conc 33.3 g/dL (30.0-36.0); Mean Corpuscular Volume 89.9 fL (80-94); Mean Platelet Volume 10.8 fL (7.4-10.4); Monocytes # 0.6 10^3/uL (0.2-0.9); Monocytes % 8.3 %; Neutrophils # 4.25 10^3/uL (1.8-7.7); Neutrophils % 62.6 %; Nucleated Red Blood Cells % 0 %; Platelet Count 259 10^3/cmm (130-400); Red Blood Count 4.87 10^6/uL (4.1-5.3); Red Cell Distribution Width 12.4 % (12.1-15.1); White Blood Count 6.8 10^3/uL (4.0-10.0)
[2020-08-05] MEDS: insulin regular-human 100 units/1 mL 5 UNIT IVP (10:50)
[2020-08-05 10:54] LABS: Alanine Aminotransferase 13 U/L (0-41); Albumin Level 3.7 g/dL (3.5-5.2); Alkaline Phosphatase 109 IU/L (40-130); Anion Gap 11.3 (5-19); Aspartate Amino Transferase 10 U/L (0-40); Blood Urea Nitrogen 10 mg/dL (6-20); Calcium 9.2 mg/dL (8.5-10.5); Carbon Dioxide 27 mmol/L (22-29); Chloride 99 mmol/L (98-107); Globulin 2.7 g/dL (1.3-4.6); Glucose 463 mg/dL (65-115); Osmolality Calculated 295 mOsm/kg (285-295); Potassium 4.3 mmol/L (3.5-5.1); Sodium 133 mmol/L (136-145); Total Bilirubin 0.5 mg/dL (0.15-1.2); Total Protein 6.4 g/dL (6.6-8.7)
[2020-08-05 11:28] VITALS: BP 135/86; PULSE 77; RESP 16; TEMP 36.7; O2SAT 98
[2020-08-05 11:28] LABS: Glucose Point of Care 292 mg/dL (70-110)
[2020-08-05 12:19] LABS: Glucose Point of Care 385 mg/dL (70-110)
[2020-08-05 12:19] LABS: Glucose Point of Care 467 mg/dL (70-110)
== END 2020-08-05 11:33 | disposition home or self-care (01) ==
PROVIDERS: Emergency Provider Emergency Medicine; PCP Nurse Practitioner Family
DX: R73.9 Hyperglycemia, unspecified (principal); Z79.84 Long term (current) use of oral hypoglycemic drugs
CPT/HCPCS: 12345; 36416; 80053; 82962; 85025; 96361; 96374; 96375; 99283; J1815; J7030

== ENCOUNTER 2020-08-10 14:11 | Outpatient (CLI) | payer SELFPAY | END 2020-08-10 14:12 | disposition home or self-care (01) | LOC: WOUND 14:11 | PROVIDERS: PCP Nurse Practitioner Family; Visit Provider Surgery | DX: E11.621 Type 2 diabetes mellitus with foot ulcer (principal); L97.422 Non-pressure chronic ulcer of left heel and midfoot with fat layer exposed | CPT/HCPCS: 11042 ==

== ENCOUNTER 2020-08-17 14:50 | Outpatient (CLI) | payer SELFPAY | END 2020-08-17 14:51 | disposition home or self-care (01) | LOC: WOUND 14:50 | PROVIDERS: PCP Nurse Practitioner Family; Visit Provider Surgery | DX: E11.621 Type 2 diabetes mellitus with foot ulcer (principal); L97.422 Non-pressure chronic ulcer of left heel and midfoot with fat layer exposed | CPT/HCPCS: 97597 ==

== ENCOUNTER 2020-08-24 15:07 | Outpatient (CLI) | payer SELFPAY | END 2020-08-24 15:08 | disposition home or self-care (01) | LOC: WOUND 15:07 | PROVIDERS: PCP Nurse Practitioner Family; Visit Provider Surgery | DX: E11.621 Type 2 diabetes mellitus with foot ulcer (principal); L97.422 Non-pressure chronic ulcer of left heel and midfoot with fat layer exposed | CPT/HCPCS: 11042 ==

== ENCOUNTER 2020-08-31 14:35 | Outpatient (CLI) | payer SELFPAY | END 2020-08-31 14:36 | disposition home or self-care (01) | LOC: WOUND 14:36 | PROVIDERS: PCP Nurse Practitioner Family; Visit Provider Nurse Practitioner Family | DX: E11.621 Type 2 diabetes mellitus with foot ulcer (principal); L97.422 Non-pressure chronic ulcer of left heel and midfoot with fat layer exposed | CPT/HCPCS: 11042 ==

== ENCOUNTER 2020-09-04 07:00 | Outpatient (RCR) | payer SELFPAY ==
[2020-08-26 07:44] VITALS: BP 111/78; PULSE 91; RESP 18; TEMP 36.2; O2SAT 100
[2020-08-26 07:47] VITALS: BMI 22.4
[2020-08-26 17:33] VITALS: BP 129/74; PULSE 103; RESP 18; TEMP 36.7; O2SAT 100
[2020-08-27 07:26] VITALS: BP 125/77; PULSE 60; RESP 18; TEMP 36.3; O2SAT 100
--- NOTE | 2020-08-27 07:31 | PC.NURSE ---
PT REQUESTED FOR HIS WOUND TO BE LOOKED AT. PT REMOVED DRESSING. WOUND NOT BLEEDING , CALLOUSED AREA NOTED TO TOP OF WOUND TOWARD TOES. PT ASKING THAT AREA HAVE SOMETHING DONE TO IT. INFORMED PT I WOULD CONTACT WOUND CLINIC TO SEE IF THEY COULD SEE HIM EARLIER THAN THURSDAY. PT BECAME IRRITATED.PT REQUESTED SCISSORS SO HE COULD CUT MORE TISSUE OFF. I INFORMED HIM THAT I COULD NOT DO THAT WITHOUT A DR ORDER. PT STATES FORGET IT. WHEN I WAS OUT OF ROOM PT TOOK SCISSORS OFF OF SHELF AND CUT TISSUE OFF. PT ASKED FOR MORE DRESSING SUPPLIES. PT WAS GIVEN SUPPLIES TO DRESS WOUND.
[2020-08-27 17:52] VITALS: BP 96/72; PULSE 88; RESP 18; TEMP 36.8; O2SAT 100
[2020-08-28 07:25] VITALS: BP 126/74; PULSE 89; RESP 18; TEMP 36.1; O2SAT 96
[2020-08-28 17:58] VITALS: BP 93/73; PULSE 104; RESP 18; TEMP 36.5; O2SAT 100
[2020-08-29 07:17] VITALS: BP 128/72; PULSE 90; RESP 18; TEMP 36.3; O2SAT 100
[2020-08-29 17:23] VITALS: BP 108/64; PULSE 102; RESP 18; TEMP 36.6; O2SAT 99
[2020-08-30 07:31] VITALS: BP 132/73; PULSE 90; RESP 18; TEMP 36.2; O2SAT 99
[2020-08-30 16:57] VITALS: BP 112/79; PULSE 103; RESP 18; TEMP 36.3; O2SAT 99
[2020-08-31 07:14] VITALS: BP 133/79; PULSE 78; RESP 18; TEMP 36.3; O2SAT 100
[2020-08-31 07:17] LABS: Basophils # 0.1 10^3/uL (0.0-0.1); Basophils % 1.8 %; Eosinophils # 0.5 10^3/uL (0.0-0.8); Eosinophils % 6.3 %; Hematocrit 45.1 % (42.0-52.0); Lymphocytes # 1.9 10^3/uL (0.8-4.8); Lymphocytes % 25.1 %; Mean Corpuscular HGB Conc 33.3 g/dL (30.0-36.0); Mean Corpuscular Hemoglobin 30.2 pg (28.0-34.0); Mean Corpuscular Volume 90.7 fL (80-94); Mean Platelet Volume 10.4 fL (7.4-10.4); Monocytes # 0.8 10^3/uL (0.2-0.9); Monocytes % 9.9 %; Neutrophils # 4.34 10^3/uL (1.8-7.7); Neutrophils % 56.6 %; Nucleated Red Blood Cells % 0 %; Platelet Count 263 10^3/cmm (130-400); Red Blood Count 4.97 10^6/uL (4.1-5.3); Red Cell Distribution Width 12.4 % (12.1-15.1); White Blood Count 7.7 10^3/uL (4.0-10.0)
[2020-08-31 07:36] LABS: Anion Gap 12.2 (5-19); Blood Urea Nitrogen 8 mg/dL (6-20); Calcium 8.7 mg/dL (8.5-10.5); Carbon Dioxide 29 mmol/L (22-29); Chloride 104 mmol/L (98-107); Creatinine Clr Calc Pharmacy 143.1622; Glomerular Filtration Rate 118.9 mL/min (90-130); Glucose 152 mg/dL (65-115); Osmolality Calculated 293 mOsm/kg (285-295); Potassium 4.2 mmol/L (3.5-5.1); Sodium 141 mmol/L (136-145)
[2020-08-31 16:47] VITALS: BP 111/67; PULSE 92; RESP 18; TEMP 36.3; O2SAT 98
[2020-09-01 07:07] VITALS: BP 136/85; PULSE 85; RESP 18; TEMP 36.3; O2SAT 100
[2020-09-01 17:05] VITALS: BP 118/79; PULSE 101; RESP 18; TEMP 36.7; O2SAT 100
[2020-09-02 07:18] VITALS: BP 118/71; PULSE 89; RESP 18; TEMP 36.6; O2SAT 100
[2020-09-02 16:35] VITALS: BP 120/72; PULSE 97; RESP 18; TEMP 36.4; O2SAT 98
[2020-09-03 07:12] VITALS: BP 152/84; PULSE 72; RESP 18; TEMP 36.8; O2SAT 96
[2020-09-03 17:09] VITALS: BP 109/72; PULSE 95; RESP 18; TEMP 36.8; O2SAT 98
[2020-09-04 07:19] VITALS: BP 126/80; PULSE 90; RESP 18; TEMP 36.7; O2SAT 100
[2020-09-04 17:16] VITALS: BP 98/65; PULSE 104; RESP 18; TEMP 37.1; O2SAT 99
== END 2020-09-24 23:59 | disposition home or self-care (01) ==
LOC: OPS 07:00
PROVIDERS: PCP Nurse Practitioner Family; Visit Provider Surgery
DX: E11.42 Type 2 diabetes mellitus with diabetic polyneuropathy (principal); L97.522 Non-pressure chronic ulcer of other part of left foot with fat layer exposed; M20.42 Other hammer toe(s) (acquired), left foot
CPT/HCPCS: 36415; 80048; 80202; 85025; 96365; 96366; J3370; J7040

== ENCOUNTER 2020-09-07 15:09 | Outpatient (CLI) | payer SELFPAY | END 2020-09-07 15:10 | disposition home or self-care (01) | LOC: WOUND 15:10 | PROVIDERS: PCP Nurse Practitioner Family; Visit Provider Surgery | DX: E11.621 Type 2 diabetes mellitus with foot ulcer (principal); L97.422 Non-pressure chronic ulcer of left heel and midfoot with fat layer exposed | CPT/HCPCS: 11042 ==

== ENCOUNTER → 2020-09-12 15:04 | Outpatient (BNVA) | payer SELFPAY | PROVIDERS: PCP Nurse Practitioner Family; Visit Provider Podiatrist Foot & Ankle Surgery | DX: L97.522 Non-pressure chronic ulcer of other part of left foot with fat layer exposed (principal); E11.42 Type 2 diabetes mellitus with diabetic polyneuropathy; M20.42 Other hammer toe(s) (acquired), left foot | CPT/HCPCS: 73630 ==

== ENCOUNTER → 2020-10-04 08:52 | Day surgery (SDC) | payer SELFPAY ==
--- NOTE | 2020-10-04 09:08 | XR_ITS ---
WS: [id number] XR chest 1V portable [id number] REASON FOR EXAM: PICC PLACEMENT FINDINGS: Right arm PICC line placement. PICC line tip is into the right atrium. Placement was discussed with kristina mendez PICC line nurse over the phone and it was agreed to pulled the PICC line back 2 cm. PICC line coul d then be used. Chest otherwise unremarkable. XR/XR chest 1V portable [id number] IMPRESSION: Right arm PICC line line placement and adjustment as above.
[2020-10-04 10:17] LABS: Basophils # 0.1 10^3/uL (0.0-0.1); Basophils % 1.1 %; Eosinophils # 0.5 10^3/uL (0.0-0.8); Eosinophils % 7.1 %; Hematocrit 43.6 % (42.0-52.0); Hemoglobin 14.6 g/dL (11.7-16.6); Lymphocytes # 1.4 10^3/uL (0.8-4.8); Lymphocytes % 19.7 %; Mean Corpuscular HGB Conc 33.5 g/dL (30.0-36.0); Mean Corpuscular Hemoglobin 29.7 pg (28.0-34.0); Mean Corpuscular Volume 88.6 fL (80-94); Mean Platelet Volume 10.5 fL (7.4-10.4); Monocytes # 0.6 10^3/uL (0.2-0.9); Monocytes % 7.9 %; Neutrophils # 4.66 10^3/uL (1.8-7.7); Neutrophils % 63.9 %; Nucleated Red Blood Cells % 0 %; Platelet Count 271 10^3/cmm (130-400); Red Blood Count 4.92 10^6/uL (4.1-5.3); Red Cell Distribution Width 12.2 % (12.1-15.1); White Blood Count 7.3 10^3/uL (4.0-10.0)
[2020-10-04] MEDS: ertapenem 1,000 MG in sodium chloride 0.9% (plus) 100 ML 200 MG IV (10:26)
[2020-10-04 10:31] VITALS: BP 124/72; PULSE 90; RESP 18; TEMP 36.4; O2SAT 97; BMI 25.9
[2020-10-04 10:39] LABS: Alanine Aminotransferase 14 U/L (0-41); Albumin Level 3.7 g/dL (3.5-5.2); Alkaline Phosphatase 86 IU/L (40-130); Anion Gap 12.4 (5-19); Aspartate Amino Transferase 13 U/L (0-40); Blood Urea Nitrogen 17 mg/dL (6-20); Calcium 8.6 mg/dL (8.5-10.5); Carbon Dioxide 27 mmol/L (22-29); Chloride 99 mmol/L (98-107); Globulin 2.6 g/dL (1.3-4.6); Glomerular Filtration Rate 118.9 mL/min (90-130); Glucose 232 mg/dL (65-115); Osmolality Calculated 287 mOsm/kg (285-295); Potassium 4.4 mmol/L (3.5-5.1); Sodium 134 mmol/L (136-145); Total Bilirubin 0.5 mg/dL (0.15-1.2); Total Protein 6.3 g/dL (6.6-8.7)
[2020-10-06] MEDS: ertapenem 1,000 MG in sodium chloride 0.9% (plus) 100 ML 200 MG IV (09:10)
[2020-10-06 09:37] VITALS: BP 109/70; PULSE 85; RESP 18; TEMP 36; O2SAT 100
[2020-10-08 09:17] VITALS: BP 141/80; PULSE 91; RESP 18; TEMP 35.8; O2SAT 99
== END ==
PROVIDERS: PCP Nurse Practitioner Family; Visit Provider Internal Medicine Infectious Disease
DX: M86.672 Other chronic osteomyelitis, left ankle and foot (principal)
CPT/HCPCS: 15852; 36569; 36592; 71045; 80053; 85025; 96365; J1335

== ENCOUNTER 2020-10-25 09:19 | Outpatient (RCR) | payer SELFPAY ==
[2020-10-05] MEDS: ertapenem 1,000 MG in sodium chloride 0.9% (plus) 100 ML 200 MG IV (09:31)
[2020-10-05 09:35] VITALS: BP 119/75; PULSE 92; RESP 18; TEMP 36.3; O2SAT 100; BMI 25.7
[2020-10-07 09:16] VITALS: BP 128/81; PULSE 100; RESP 18; TEMP 36.4; O2SAT 97
[2020-10-07] MEDS: ertapenem 1,000 MG in sodium chloride 0.9% (plus) 100 ML 200 MG IV (09:17)
[2020-10-08] MEDS: ertapenem 1,000 MG in sodium chloride 0.9% (plus) 100 ML 200 MG IV (09:15)
[2020-10-08 09:19] VITALS: BP 141/80; PULSE 91; RESP 18; TEMP 35.8; O2SAT 99
[2020-10-09] MEDS: ertapenem 1,000 MG in sodium chloride 0.9% (plus) 100 ML 200 MG IV (09:20)
[2020-10-09 09:25] VITALS: BP 105/76; PULSE 93; RESP 16; TEMP 36.6; O2SAT 99
[2020-10-10 09:20] VITALS: BP 105/76; PULSE 92; RESP 16; TEMP 36.3; O2SAT 100
[2020-10-10] MEDS: ertapenem 1,000 MG in sodium chloride 0.9% (plus) 100 ML 200 MG IV (09:30)
[2020-10-11 09:23] VITALS: BP 99/70; PULSE 97; RESP 18; TEMP 36.1; O2SAT 100
[2020-10-11] MEDS: ertapenem 1,000 MG in sodium chloride 0.9% (plus) 100 ML 200 MG IV (09:23)
[2020-10-12 09:06] VITALS: BP 125/71; PULSE 88; RESP 18; TEMP 36.5; O2SAT 100
[2020-10-12] MEDS: ertapenem 1,000 MG in sodium chloride 0.9% (plus) 100 ML 200 MG IV (09:09)
[2020-10-12 09:27] LABS: Hemoglobin 14.3 g/dL (11.7-16.6); Mean Corpuscular HGB Conc 32.5 g/dL (30.0-36.0); Mean Corpuscular Hemoglobin 29.3 pg (28.0-34.0); Mean Corpuscular Volume 90.2 fL (80-94); Mean Platelet Volume 10.7 fL (7.4-10.4); Platelet Count 277 10^3/cmm (130-400); Red Blood Count 4.88 10^6/uL (4.1-5.3); Red Cell Distribution Width 12.2 % (12.1-15.1); White Blood Count 7.1 10^3/uL (4.0-10.0)
[2020-10-12 09:47] LABS: Alanine Aminotransferase 21 U/L (0-41); Albumin Level 3.8 g/dL (3.5-5.2); Alkaline Phosphatase 81 IU/L (40-130); Aspartate Amino Transferase 16 U/L (0-40); Blood Urea Nitrogen 20 mg/dL (6-20); Calcium 8.7 mg/dL (8.5-10.5); Carbon Dioxide 30 mmol/L (22-29); Chloride 100 mmol/L (98-107); Globulin 2.7 g/dL (1.3-4.6); Glomerular Filtration Rate 101.9 mL/min (90-130); Glucose 186 mg/dL (65-115); Osmolality Calculated 293 mOsm/kg (285-295); Sodium 138 mmol/L (136-145); Total Bilirubin 0.7 mg/dL (0.15-1.2); Total Protein 6.5 g/dL (6.6-8.7)
[2020-10-12 10:42] LABS: Absolute Eosinophils 0.5 10^3/cmm (0.0-0.7); Absolute Segmented Neutrophil 4.8 10/cmm (1.6-7.1); Band Neutrophils Absolute 0.1 10^3/cmm (0.0-1.2); Eosinophils 8 %; Giant Platelets Trace; Lymphocytes 16 %; Monocytes Absolute 0.1 10^3/cmm (0.1-0.6); Platelet Estimate Normal (Normal); Segmented Neutrophils 68 %; Total Cells Counted 100 (0-100)
[2020-10-13 09:09] VITALS: BP 122/66; PULSE 89; RESP 18; TEMP 36.6; O2SAT 100
[2020-10-13] MEDS: ertapenem 1,000 MG in sodium chloride 0.9% (plus) 100 ML 200 MG IV (09:10)
--- NOTE | 2020-10-13 09:59 | SUR.PREOP ---
pt asked if after i flushed picc line if blood could be drawn back and there was blood return when i flushed picc, new swapcap applied
[2020-10-14] MEDS: ertapenem 1,000 MG in sodium chloride 0.9% (plus) 100 ML 200 MG IV (09:07)
[2020-10-14 09:10] VITALS: BP 103/68; PULSE 84; RESP 18; TEMP 36.3; O2SAT 100
[2020-10-15 09:23] VITALS: BP 139/75; PULSE 87; RESP 18; TEMP 36.1; O2SAT 98
[2020-10-15] MEDS: ertapenem 1,000 MG in sodium chloride 0.9% (plus) 100 ML 200 MG IV (09:24)
[2020-10-16] MEDS: ertapenem 1,000 MG in sodium chloride 0.9% (plus) 100 ML 200 MG IV (05:50)
[2020-10-16 06:14] VITALS: BP 137/92; PULSE 81; RESP 18; TEMP 35.9; O2SAT 99
[2020-10-17] MEDS: ertapenem 1,000 MG in sodium chloride 0.9% (plus) 100 ML 150 MG IV (09:10)
[2020-10-17 09:12] VITALS: BP 128/69; PULSE 90; RESP 18; TEMP 36.6; O2SAT 99
[2020-10-18 09:25] VITALS: BP 142/84; PULSE 83; RESP 18; TEMP 35.9; O2SAT 100
[2020-10-18 09:45] LABS: Basophils # 0.1 10^3/uL (0.0-0.1); Basophils % 1.4 %; Eosinophils # 0.4 10^3/uL (0.0-0.8); Eosinophils % 6.7 %; Hematocrit 42.4 % (42.0-52.0); Lymphocytes # 1.4 10^3/uL (0.8-4.8); Lymphocytes % 23.9 %; Mean Corpuscular Hemoglobin 29.6 pg (28.0-34.0); Mean Corpuscular Volume 89.6 fL (80-94); Mean Platelet Volume 10.6 fL (7.4-10.4); Monocytes # 0.5 10^3/uL (0.2-0.9); Monocytes % 7.7 %; Neutrophils # 3.53 10^3/uL (1.8-7.7); Neutrophils % 60.1 %; Nucleated Red Blood Cells % 0 %; Platelet Count 228 10^3/cmm (130-400); Red Blood Count 4.73 10^6/uL (4.1-5.3); Red Cell Distribution Width 12.1 % (12.1-15.1); White Blood Count 5.9 10^3/uL (4.0-10.0)
[2020-10-18 09:57] LABS: Alanine Aminotransferase 17 U/L (0-41); Albumin Level 3.6 g/dL (3.5-5.2); Alkaline Phosphatase 74 IU/L (40-130); Anion Gap 13.6 (5-19); Aspartate Amino Transferase 14 U/L (0-40); Blood Urea Nitrogen 15 mg/dL (6-20); Calcium 8.4 mg/dL (8.5-10.5); Carbon Dioxide 25 mmol/L (22-29); Chloride 102 mmol/L (98-107); Globulin 2.5 g/dL (1.3-4.6); Glucose 189 mg/dL (65-115); Osmolality Calculated 288 mOsm/kg (285-295); Potassium 4.6 mmol/L (3.5-5.1); Sodium 136 mmol/L (136-145); Total Bilirubin 0.6 mg/dL (0.15-1.2); Total Protein 6.1 g/dL (6.6-8.7)
[2020-10-19 09:10] VITALS: BP 134/91; PULSE 84; RESP 18; TEMP 36.1; O2SAT 100
[2020-10-19] MEDS: ertapenem 1,000 MG in sodium chloride 0.9% (plus) 100 ML 200 MG IV (09:10)
[2020-10-20] MEDS: ertapenem 1,000 MG in sodium chloride 0.9% (plus) 100 ML 200 MG IV (09:15)
[2020-10-20 09:41] VITALS: BP 128/77; PULSE 87; RESP 18; TEMP 36.6; O2SAT 100
[2020-10-21] MEDS: ertapenem 1,000 MG in sodium chloride 0.9% (plus) 100 ML 200 MG IV (08:55)
[2020-10-21 09:12] VITALS: BP 121/78; PULSE 80; RESP 18; TEMP 36.3; O2SAT 100
[2020-10-22] MEDS: ertapenem 1,000 MG in sodium chloride 0.9% (plus) 100 ML 200 MG IV (09:24)
[2020-10-22 09:30] VITALS: BP 115/73; PULSE 88; RESP 18; TEMP 36.5; O2SAT 100
[2020-10-23] MEDS: ertapenem 1,000 MG in sodium chloride 0.9% (plus) 100 ML 200 MG IV (09:17)
[2020-10-23 09:28] VITALS: BP 122/76; PULSE 85; RESP 18; TEMP 36.2; O2SAT 100
[2020-10-24] MEDS: ertapenem 1,000 MG in sodium chloride 0.9% (plus) 100 ML 200 MG IV (09:02)
[2020-10-24 09:09] VITALS: BP 130/75; PULSE 858; RESP 18; TEMP 36.2; O2SAT 100
[2020-10-25 09:20] VITALS: BP 117/67; PULSE 93; RESP 16; TEMP 36.5; O2SAT 99
[2020-10-25] MEDS: ertapenem 1,000 MG in sodium chloride 0.9% (plus) 100 ML 200 MG IV (09:45)
[2020-10-25 09:46] LABS: Basophils # 0.1 10^3/uL (0.0-0.1); Basophils % 1.5 %; Eosinophils # 0.5 10^3/uL (0.0-0.8); Eosinophils % 6.9 %; Hematocrit 45.1 % (42.0-52.0); Hemoglobin 14.9 g/dL (11.7-16.6); Lymphocytes # 1.4 10^3/uL (0.8-4.8); Lymphocytes % 20.4 %; Mean Corpuscular Hemoglobin 29.6 pg (28.0-34.0); Mean Corpuscular Volume 89.5 fL (80-94); Mean Platelet Volume 10.8 fL (7.4-10.4); Monocytes # 0.5 10^3/uL (0.2-0.9); Monocytes % 7.9 %; Neutrophils # 4.33 10^3/uL (1.8-7.7); Nucleated Red Blood Cells % 0 %; Platelet Count 267 10^3/cmm (130-400); Red Blood Count 5.04 10^6/uL (4.1-5.3); Red Cell Distribution Width 12.3 % (12.1-15.1); White Blood Count 6.9 10^3/uL (4.0-10.0)
--- NOTE | 2020-10-25 10:23 | SUR.OPER ---
0930 CMP and CBC drawn. Results sent to Dr. Gonsalez's office. Dressing to right upper arm PICC changed per protocol using sterile technique. Insertion site with slight redness. No warmth or drainage noted. STAT lock applied. End cap changed.
[2020-10-25 10:34] LABS: Alanine Aminotransferase 22 U/L (0-41); Albumin Level 3.8 g/dL (3.5-5.2); Alkaline Phosphatase 76 IU/L (40-130); Anion Gap 15.1 (5-19); Aspartate Amino Transferase 22 U/L (0-40); Blood Urea Nitrogen 13 mg/dL (6-20); Calcium 8.5 mg/dL (8.5-10.5); Carbon Dioxide 26 mmol/L (22-29); Chloride 102 mmol/L (98-107); Globulin 2.5 g/dL (1.3-4.6); Glomerular Filtration Rate 101.9 mL/min (90-130); Glucose 233 mg/dL (65-115); Osmolality Calculated 296 mOsm/kg (285-295); Potassium 4.1 mmol/L (3.5-5.1); Sodium 139 mmol/L (136-145); Total Bilirubin 0.9 mg/dL (0.15-1.2); Total Protein 6.3 g/dL (6.6-8.7)
== END 2020-10-25 23:59 | disposition home or self-care (01) ==
LOC: OPS 09:19
PROVIDERS: PCP Nurse Practitioner Family; Visit Provider Internal Medicine Infectious Disease
DX: M86.672 Other chronic osteomyelitis, left ankle and foot (principal)
CPT/HCPCS: 15852; 36415; 36592; 80053; 85007; 85025; 85027; 96365; J1335

== ENCOUNTER 2020-11-07 08:07 | Outpatient (RCR) | payer SELFPAY ==
[2020-10-26 09:15] VITALS: BP 134/80; PULSE 80; RESP 18; TEMP 36.1; O2SAT 100; BMI 28.1
[2020-10-26] MEDS: ertapenem 1,000 MG in sodium chloride 0.9% (plus) 100 ML 200 MG IV (09:20)
[2020-10-27] MEDS: ertapenem 1,000 MG in sodium chloride 0.9% (plus) 100 ML 200 MG IV (09:08)
[2020-10-27 09:14] VITALS: BP 140/68; PULSE 90; RESP 18; TEMP 36.1; O2SAT 100
[2020-10-28] MEDS: ertapenem 1,000 MG in sodium chloride 0.9% (plus) 100 ML 200 MG IV (09:20)
[2020-10-28 09:24] VITALS: BP 124/74; PULSE 89; RESP 18; TEMP 36.4; O2SAT 100
[2020-10-29] MEDS: ertapenem 1,000 MG in sodium chloride 0.9% (plus) 100 ML 200 MG IV (09:37)
[2020-10-29 09:39] VITALS: BP 106/66; PULSE 93; RESP 18; TEMP 36.2; O2SAT 100
[2020-10-30] MEDS: ertapenem 1,000 MG in sodium chloride 0.9% (plus) 100 ML 200 MG IV (09:15)
[2020-10-30 09:17] VITALS: BP 102/68; PULSE 93; RESP 18; TEMP 36.1; O2SAT 100
[2020-10-31] MEDS: ertapenem 1,000 MG in sodium chloride 0.9% (plus) 100 ML 200 MG IV (09:18)
[2020-10-31 09:55] VITALS: BP 93/58; PULSE 90; RESP 18; TEMP 36.4; O2SAT 100
[2020-11-01] MEDS: ertapenem 1,000 MG in sodium chloride 0.9% (plus) 100 ML 200 MG IV (09:23)
[2020-11-01 09:24] VITALS: BP 116/73; PULSE 93; RESP 18; TEMP 36.5; O2SAT 100
[2020-11-01 09:29] LABS: Basophils # 0.1 10^3/uL (0.0-0.1); Basophils % 1.4 %; Eosinophils # 0.5 10^3/uL (0.0-0.8); Eosinophils % 7.8 %; Hematocrit 45.8 % (42.0-52.0); Lymphocytes # 1.5 10^3/uL (0.8-4.8); Lymphocytes % 23.4 %; Mean Corpuscular HGB Conc 32.8 g/dL (30.0-36.0); Mean Corpuscular Hemoglobin 29.2 pg (28.0-34.0); Mean Corpuscular Volume 89.1 fL (80-94); Mean Platelet Volume 10.7 fL (7.4-10.4); Monocytes # 0.5 10^3/uL (0.2-0.9); Monocytes % 7.4 %; Neutrophils # 3.91 10^3/uL (1.8-7.7); Neutrophils % 59.8 %; Nucleated Red Blood Cells % 0 %; Platelet Count 219 10^3/cmm (130-400); Red Blood Count 5.14 10^6/uL (4.1-5.3); Red Cell Distribution Width 12.1 % (12.1-15.1); White Blood Count 6.5 10^3/uL (4.0-10.0)
[2020-11-01 09:54] LABS: Alanine Aminotransferase 22 U/L (0-41); Alkaline Phosphatase 77 IU/L (40-130); Anion Gap 14.1 (5-19); Aspartate Amino Transferase 23 U/L (0-40); Blood Urea Nitrogen 17 mg/dL (6-20); Carbon Dioxide 26 mmol/L (22-29); Chloride 100 mmol/L (98-107); Creatinine Clr Calc Pharmacy 141.4161; Globulin 2.4 g/dL (1.3-4.6); Glomerular Filtration Rate 101.9 mL/min (90-130); Glucose 175 mg/dL (65-115); Osmolality Calculated 288 mOsm/kg (285-295); Potassium 4.1 mmol/L (3.5-5.1); Sodium 136 mmol/L (136-145); Total Protein 6.4 g/dL (6.6-8.7)
[2020-11-02] MEDS: ertapenem 1,000 MG in sodium chloride 0.9% (plus) 100 ML 200 MG IV (09:14)
[2020-11-02 09:16] VITALS: BP 130/66; PULSE 88; RESP 18; TEMP 35.8; O2SAT 100
[2020-11-03] MEDS: ertapenem 1,000 MG in sodium chloride 0.9% (plus) 100 ML 200 MG IV (09:15)
[2020-11-03 09:23] VITALS: BP 97/71; PULSE 93; RESP 18; TEMP 36.1; O2SAT 100
[2020-11-04] MEDS: ertapenem 1,000 MG in sodium chloride 0.9% (plus) 100 ML 200 MG IV (09:27)
[2020-11-04 09:34] VITALS: BP 108/69; PULSE 86; RESP 15; TEMP 36.4; O2SAT 99
[2020-11-05] MEDS: ertapenem 1,000 MG in sodium chloride 0.9% (plus) 100 ML 200 MG IV (08:01)
[2020-11-05 08:07] VITALS: BP 126/70; PULSE 89; RESP 18; TEMP 36.2; O2SAT 100
[2020-11-06] MEDS: ertapenem 1,000 MG in sodium chloride 0.9% (plus) 100 ML 200 MG IV (09:14)
[2020-11-06 09:20] VITALS: BP 126/86; PULSE 85; RESP 18; TEMP 36.4; O2SAT 100
[2020-11-07] MEDS: ertapenem 1,000 MG in sodium chloride 0.9% (plus) 100 ML 200 MG IV (08:32)
[2020-11-07 09:25] VITALS: BP 111/70; PULSE 90; RESP 18; TEMP 36.2; O2SAT 100
[2020-11-08 09:20] VITALS: BP 119/72; PULSE 90; RESP 16; TEMP 36.5; O2SAT 98
[2020-11-08] MEDS: ertapenem 1,000 MG in sodium chloride 0.9% (plus) 100 ML 200 MG IV (09:47)
[2020-11-08 09:49] LABS: Basophils # 0.1 10^3/uL (0.0-0.1); Basophils % 1.7 %; Eosinophils # 0.4 10^3/uL (0.0-0.8); Eosinophils % 6.8 %; Hematocrit 44.1 % (42.0-52.0); Hemoglobin 14.4 g/dL (11.7-16.6); Lymphocytes # 0.9 10^3/uL (0.8-4.8); Lymphocytes % 15.2 %; Mean Corpuscular HGB Conc 32.7 g/dL (30.0-36.0); Mean Corpuscular Hemoglobin 29.6 pg (28.0-34.0); Mean Corpuscular Volume 90.7 fL (80-94); Mean Platelet Volume 10.8 fL (7.4-10.4); Monocytes # 0.8 10^3/uL (0.2-0.9); Neutrophils # 3.72 10^3/uL (1.8-7.7); Nucleated Red Blood Cells % 0 %; Platelet Count 231 10^3/cmm (130-400); Red Blood Count 4.86 10^6/uL (4.1-5.3); Red Cell Distribution Width 12.4 % (12.1-15.1); White Blood Count 5.9 10^3/uL (4.0-10.0)
[2020-11-08 10:14] LABS: Alanine Aminotransferase 25 U/L (0-41); Albumin Level 3.7 g/dL (3.5-5.2); Alkaline Phosphatase 75 IU/L (40-130); Anion Gap 11.8 (5-19); Aspartate Amino Transferase 26 U/L (0-40); Blood Urea Nitrogen 11 mg/dL (6-20); Calcium 8.5 mg/dL (8.5-10.5); Carbon Dioxide 28 mmol/L (22-29); Chloride 100 mmol/L (98-107); Globulin 2.6 g/dL (1.3-4.6); Glomerular Filtration Rate 118.9 mL/min (90-130); Glucose 205 mg/dL (65-115); Osmolality Calculated 287 mOsm/kg (285-295); Potassium 3.8 mmol/L (3.5-5.1); Sodium 136 mmol/L (136-145); Total Bilirubin 0.7 mg/dL (0.15-1.2); Total Protein 6.3 g/dL (6.6-8.7)
--- NOTE | 2020-11-08 10:29 | SUR.OPER ---
PICC line flushed with 20ML of saline flush and cap replaced . patient left in stable condition.
--- NOTE | 2020-11-08 12:33 | SUR.OPER ---
12:30 patients labs faxed to infectious disease clinic.
--- NOTE | 2020-11-10 09:40 | SUR.PREOP ---
contacted patient at 0930, patient reported i will not be there today, carey tried calling you for the last 30 min but nobody would answer the phone. I will do my best to make it there tomorrow about 5 min after that conversation, a woman called and reported patient would not be here, he isnt feeling well.
--- NOTE | 2020-11-13 09:22 | SUR.PREOP ---
Patient called and stated he was going to get tested for Covid and would not be here today.
[2020-11-13 14:11] LABS: SARS Covid-2 Antigen Positive (Negative)
== END 2020-11-25 23:59 | disposition home or self-care (01) ==
LOC: OPS 08:07
PROVIDERS: PCP Nurse Practitioner Family; Visit Provider Internal Medicine Infectious Disease
DX: M86.9 Osteomyelitis, unspecified (principal)
CPT/HCPCS: 15852; 36592; 80053; 85025; 87426; 96365; J1335

== ENCOUNTER 2020-11-23 13:22 | Emergency (ER) | payer SELFPAY ==
[2020-11-23 13:26] VITALS: BP 93/64; PULSE 117; RESP 18; TEMP 37.1; O2SAT 92; BMI 24.7
--- NOTE | 2020-11-23 14:02 | ED_ITS ---
HPI - Wound/Laceration General: Chief Complaint: Wound/Laceration Stated Complaint: KNIFE BLADE TO R LEG Time Seen by Provider: 11/23/20 13:40 Source: patient Mode of arrival: ambulatory Limitations: no limitations History of Present Illness: HPI narrative: Patient is a nice 50-year-old male who presents to ED today with a complaint of a right thigh laceration. Patient tells me he was cutting cardboard away from [employer]ro[employer] using a knife cutting towards him when the knife slipped and cut his right thigh. Patient's tetanus is up-to-date. Patient is ambulatory on the extremity. 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 Physical Exam Const: COMMON NORMALS: no acute distress, average body habitus, patient oriented x3, no limitations, healthy appearing, alert and well nourished Extremity: COMMON NORMALS: full ROM GENERAL: Yes normal exam except as noted OTHER: 2.0 cm long laceration to anterior R thigh; depth measuring roughly 1-1.5cm; hematoma present; no active bleeding; NV intact Neuro: COMMON NORMALS: patient oriented x3, moves all extremities, no focal motor deficits, no sensory deficits noted and gait normal SENSORIUM/ORIENTATION: Yes alert Skin: OTHER: see extremity assessment Procedures Laceration Laceration 1: Site: lower extremity Side (If applicable): right Size (cm): 2.0 Description: linear Depth: simple, single layer Local Anesthetic: other anesthetic (pt refused anesthetic ) Pre-repair: wound explored and irrigated extensively Skin layer closed with: nylon Size (cm): 4-0 Number of sutures: 3 Technique: simple, interrupted Course Vital Signs: Vital signs: Vital Signs Temperature 98.7 F 11/23/20 13:26 Pulse Rate 117 H 11/23/20 13:26 Respiratory Rate 18 11/23/20 13:26 Blood Pressure 93/64 11/23/20 13:26 Pulse Oximetry 92 11/23/20 13:26 Discharge Plan Discharge Patient Disposition: Home Clinical Impression: Laceration of right thigh Qualifiers: Encounter type: initial encounter Qualified Code(s): S71.111A - Laceration without foreign body, right thigh, initial encounter Condition: Stable Prescriptions: No Action metformin 1,000 mg Tablet 1,000 mg PO BID RF: 0 Rybelsus 3 mg Tablet 3 mg PO DAILY RF: 0 Lantus U-100 Insulin 100 unit/mL Solution 5 unit SUBCUT BID RF: 0 doxycycline hyclate 100 mg capsule 100 mg PO BID RF: 0 ciprofloxacin HCl 500 mg tablet 500 mg PO BID RF: 0 Taty-C 500 mg Tablet 500 mg PO DAILY RF: 0 Discharge Orders: Discharge ED (Routine); Ordered 11/23/20 Ordered By: Dulce Call Referrals: Rambo Gardner NP [Primary Care Provider] - Patient Instructions: Suture Care (ED), Laceration (ED) Activity Restrictions/Additional Instructions: Keep clean with warm soapy water several times daily. Monitor for signs of infection such as redness, swelling, increased pain. Compression and ice will help with the underlying hematoma. Sutures may be removed in 7 days. Return to the emergency department for any worsening pain, worsening swelling, color/temperature changes to your extremity, or any other concerns you may have. Coding Level of Care Code ED Claims Account Manager for Rosa Adler
== END 2020-11-23 14:22 | disposition home or self-care (01) ==
PROVIDERS: Emergency Provider Physician Assistant; PCP Nurse Practitioner Family
DX: S71.111A Laceration without foreign body, right thigh, initial encounter (principal); Z79.4 Long term (current) use of insulin; W26.0XXA Contact with knife, initial encounter
CPT/HCPCS: 12001; 12345; 99282; 99291

== ENCOUNTER 2020-12-02 17:25 | Emergency (ER) | payer SELFPAY ==
[2020-12-02 17:37] VITALS: BP 131/89; PULSE 106; RESP 14; TEMP 36.5; O2SAT 100; BMI 25.0
--- NOTE | 2020-12-02 17:49 | PC.NURSE ---
Read and agree with assessment
--- NOTE | 2020-12-02 18:03 | ED_ITS ---
HPI - Wound/Laceration General: Chief Complaint: Wound/Laceration Stated Complaint: WOUND REOPENED Time Seen by Provider: 12/02/20 17:26 Source: patient Mode of arrival: ambulatory Limitations: no limitations History of Present Illness: HPI narrative: Patient is a 50-year-old male who sustained a laceration to his right thigh 10 days ago. He came in here and had a wound sutured, and was back earlier today to have the stitches removed. However when he got back home the wound dehisced and had significant bleeding that he could not stop. He therefore decided to come back for wound evaluation. Associated symptoms: Denies chills, fever(s), nausea or vomiting Review of Systems General: Reports: 10 or more systems reviewed and unremarkable except in HPI and below Const: Denies: fever(s), chills or body aches Eyes: Denies: change in vision or blurry vision ENMT: Denies: throat pain, enlarged tonsils, odynophagia, hoarseness, mouth pain or swelling of lips/tongue Card: Reports: chest pain; Denies: palpitations, irregular heart rhythm, edema or swelling of feet/ankles Resp: Denies: dyspnea, productive cough or non-productive cough GI: Denies: abdominal pain, nausea or vomiting : Denies: flank pain, dysuria, urinary frequency, urinary urgency or urinary hesitancy Musc: Denies: neck pain, back pain or extremity swelling Skin/Breast: Denies: rash, pruritus or erythema Neuro: Denies: headache(s), numbness in extremities or weakness in extremities Endo: Denies: polyuria, polydipsia or tired all the time [facility] ED PFSH: Surgical History (Reviewed 12/02/20 @ 18:45 by Leo Agu[place] [facility] [place] History of carpal tunnel release History of foot surgery History of nasal surgery History of tonsillectomy Social History (Reviewed 12/02/20 @ 18:45 by Leo Agu[place] [facility] [place] Smoking and tobacco status: never smoked Current occupational status: unemployed 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 Physical Exam Const: COMMON NORMALS: no acute distress, average body habitus, patient oriented x3, no limitations, healthy appearing, alert and well nourished Neck/C-Spine: COMMON NORMALS: no JVD Resp: COMMON NORMALS: normal respiratory effort, No retractions, No use of accessory muscles, clear to auscultation bilaterally and percussion normal AUSCULTATION: clear to auscultation bilaterally PERCUSSION: percussion normal Cardio: COMMON NORMALS: no JVD, regular rate, regular rhythm, S1 normal heart sound present, S2 normal heart sound present, No gallops present (Cardio), No clicks present (Cardio), No murmurs present (Cardio), No rub (Cardio) and Peripheral pulses 2+ throughout RATE: regular rate RHYTHM: regular rhythm HEART SOUNDS: S1 normal heart sound present and S2 normal heart sound present PERIPHERAL PULSES: Peripheral pulses 2+ throughout GI: COMMON NORMALS: Normal to inspection, nondistended, normoactive bowel sounds present, Soft to palpation, non-tender, No hepatosplenomegaly present, no masses and no bruits PALPATION: Yes Soft to palpation and Yes No hepatosplenomegaly present Extremity: COMMON NORMALS: normal to inspection, full ROM, capillary refill normal, no calf tenderness and no pedal edema Neuro: COMMON NORMALS: patient oriented x3 SENSORIUM/ORIENTATION: Yes alert Skin: NARRATIVE SKIN EXAM: 4 cm laceration on his mid anterior thigh longitudinal in orientation. There is oozing of blood from the wound. Wound not healed and it has dehisced. No signs of an infection noted. Procedures Laceration Laceration 1: Site: lower extremity Side (If applicable): right Size (cm): 4 Description: linear Depth: simple, single layer Local Anesthetic: other anesthetic (none, patient refused) Pre-repair: wound explored and irrigated extensively Skin layer closed with: nylon Size (cm): 4-0 Number of sutures: 3 Technique: horizontal mattress Course Vital Signs: Vital signs: Vital Signs Temperature 97.7 F 12/02/20 17:37 Pulse Rate 106 H 12/02/20 17:37 Respiratory Rate 14 12/02/20 17:37 Blood Pressure 131/89 12/02/20 17:37 Pulse Oximetry 100 12/02/20 17:37 MDM - Wound/Laceration MDM Narrative: Medical decision making narrative: Patient with a wound laceration that had been sutured 10 days ago. He had the sutures removed today and subsequently the wound dehisced. Says the wound appeared nice and clean I sutured it again using horizontal mattress sutures. Wound care instructions given to him and he is discharged home. Medical Records: Attestation: I reviewed the patient's medical records. Discharge Plan Discharge Patient Disposition: Home Clinical Impression: Dehiscence of laceration wound Qualifiers: Encounter type: subsequent encounter Qualified Code(s): T81.30XD - Disruption of wound, unspecified, subsequent encounter Condition: Stable Prescriptions: Continued metformin 1,000 mg Tablet 1,000 mg PO BID RF: 0 Rybelsus 3 mg Tablet 3 mg PO DAILY RF: 0 Lantus U-100 Insulin 100 unit/mL Solution 5 unit SUBCUT BID RF: 0 doxycycline hyclate 100 mg capsule 100 mg PO BID RF: 0 ciprofloxacin HCl 500 mg tablet 500 mg PO BID RF: 0 ascorbate calcium (vitamin C) 500 mg Tablet 500 mg PO DAILY RF: 0 Discharge Orders: Discharge ED (Routine); Ordered 12/02/20 Ordered By: Leo Aguero Referrals: Rambo Gardner NP [Primary Care Provider] - 1-3 days Discharge Diet: Usual diet Discharge Activity: Increase activity as tolerated Patient Instructions: Wound Dehiscence (ED) Activity Restrictions/Additional Instructions: Return for any new or worsening symptoms. Follow-up with your primary care provider within 1 week. Keep the dressing on for 2 days and then change it. After 2 days clean with soap and water or Hibiclens and put a sterile dressing or Band-Aid on it. Have the sutures removed in 7 to 10 days. Coding Level of Care Code ED Pharmacy Retail Support Specialist for Rosa Adler
== END 2020-12-02 18:12 | disposition home or self-care (01) ==
PROVIDERS: Emergency Provider Family Medicine; PCP Nurse Practitioner Family
DX: T81.30XA Disruption of wound, unspecified, initial encounter (principal); Z79.4 Long term (current) use of insulin; X58.XXXA Exposure to other specified factors, initial encounter
CPT/HCPCS: 12345; 99282

== ENCOUNTER 2021-01-10 11:47 | Emergency (ER) | payer SELFPAY ==
[2021-01-10 12:06] VITALS: BP 160/91; PULSE 101; RESP 18; TEMP 36.8; O2SAT 100; BMI 25.0
--- NOTE | 2021-01-10 12:30 | ED_ITS ---
HPI - Extremity Problem General: Chief complaint: Extremity Injury, Upper Stated complaint: Finger Infection on Pointer/R Hand Time Seen by Provider: 01/10/21 12:19 Source: patient Mode of arrival: ambulatory Limitations: no limitations History of Present Illness: HPI Narrative: Patient is a 50-year-old male with a history of diabetes who presents to the emergency department with swelling of his right index finger. He states that he got splinters in his hand about 2 days ago and he was able to remove all but the one in the left index finger at the distal tip. He has since noticed swelling, pain, redness of the finger. No purulent drainage. Associated symptoms: Deny fever(s) or rash Review of Systems General: Reports: 10 or more systems reviewed and unremarkable except in HPI and below Const: Denies: fever(s), chills or body aches Eyes: Denies: change in vision or blurry vision ENMT: Denies: throat pain, enlarged tonsils, odynophagia, hoarseness, mouth pain or swelling of lips/tongue Card: Denies: palpitations, irregular heart rhythm, edema or swelling of feet/ankles Resp: Denies: dyspnea, productive cough or non-productive cough GI: Denies: abdominal pain, nausea or vomiting : Denies: flank pain, dysuria, urinary frequency, urinary urgency or urinary hesitancy Musc: Denies: neck pain, back pain or extremity swelling Skin/Breast: Reports: erythema; Denies: rash or pruritus Neuro: Denies: headache(s), numbness in extremities or weakness in extremities Endo: Denies: polyuria, polydipsia or tired all the time [facility] ED PFSH: Surgical History History of carpal tunnel release History of foot surgery History of nasal surgery History of tonsillectomy Social History Smoking and tobacco status: never smoked Current occupational status: unemployed 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 Physical Exam Const: COMMON NORMALS: no acute distress, average body habitus, patient oriented x3, no limitations, healthy appearing, alert and well nourished HENMT: COMMON NORMALS: normocephalic, atraumatic and moist oral mucous membranes HEAD & SCALP: normocephalic and atraumatic Neck/C-Spine: COMMON NORMALS: no JVD Resp: COMMON NORMALS: normal respiratory effort, No retractions, No use of accessory muscles, clear to auscultation bilaterally and percussion normal AUSCULTATION: clear to auscultation bilaterally PERCUSSION: percussion normal Cardio: COMMON NORMALS: no JVD, regular rate, regular rhythm, S1 normal heart sound present, S2 normal heart sound present, No gallops present (Cardio), No clicks present (Cardio), No murmurs present (Cardio), No rub (Cardio) and Peripheral pulses 2+ throughout RATE: regular rate RHYTHM: regular rhythm HEART SOUNDS: S1 normal heart sound present and S2 normal heart sound present PERIPHERAL PULSES: Peripheral pulses 2+ throughout GI: COMMON NORMALS: Normal to inspection, nondistended, normoactive bowel sounds present, Soft to palpation, non-tender, No hepatosplenomegaly present, no masses and no bruits PALPATION: Yes Soft to palpation and Yes No hepatosplenomegaly present Extremity: COMMON NORMALS: normal to inspection, full ROM, capillary refill normal, no calf tenderness and no pedal edema RIGHT UPPER EXTREMITY: Yes hand & digits (healing wound over callous on dorsal PIP) Right hand and digits: Yes inspection (index finger swollen, erythematous), Yes palpation (tender to palpation), Yes neurovascular exam (intact) and Yes other (small puncture wound on the palmar surface of distal phalanx, non draining) Neuro: COMMON NORMALS: patient oriented x3 SENSORIUM/ORIENTATION: Yes alert Skin: COMMON NORMALS: no rashes or lesions noted, no wounds, turgor normal, no jaundice, no petechiae and no mottling GENERAL SKIN EXAM: no rashes or lesions noted and turgor normal Course Vital Signs: Vital signs: Vital Signs Temperature 98.3 F 01/10/21 12:06 Pulse Rate 98 01/10/21 12:43 Respiratory Rate 16 01/10/21 12:43 Blood Pressure 160/91 01/10/21 12:06 Pulse Oximetry 95 01/10/21 12:43 MDM - Extremity (Nontraumatic) MDM Narrative: Medical decision making narrative: 50-year-old male diabetic patient who presents with cellulitis of his right index finger from a splinter in there. Explained to him that we will not go chasing the splint on as there is no evidence of an abscess will not perform an I&D. We will treat him with antibiotics for now and he is to return if he gets any worse. Wound care instructions given to him. He voiced understanding and is in agreement with the plan. Medical Records: Attestation: I reviewed the patient's medical records. Discharge Plan Discharge Patient Disposition: Home Clinical Impression: Cellulitis Qualifiers: Site of cellulitis: extremity Site of cellulitis of extremity: finger Laterality: right Qualified Code(s): L03.011 - Cellulitis of right finger Condition: Stable Prescriptions: New doxycycline hyclate 100 mg tablet 100 mg PO BID 7 Days Qty: 14 RF: 0 Continued metformin 1,000 mg Tablet 1,000 mg PO BID RF: 0 Rybelsus 3 mg Tablet 3 mg PO DAILY RF: 0 Lantus U-100 Insulin 100 unit/mL Solution 5 unit SUBCUT BID RF: 0 ciprofloxacin HCl 500 mg tablet 500 mg PO BID RF: 0 ascorbate calcium (vitamin C) 500 mg Tablet 500 mg PO DAILY RF: 0 Discontinued doxycycline hyclate 100 mg capsule 100 mg PO BID RF: 0 Discharge Orders: Discharge ED (Routine); Ordered 01/10/21 Ordered By: Leo Aguero Referrals: Rambo Gardner NP [Primary Care Provider] - 1-3 days Discharge Diet: Usual diet Discharge Activity: Resume usual activity Patient Instructions: Cellulitis (ED) Activity Restrictions/Additional Instructions: Return for any new or worsening symptoms. Follow-up with your primary care provider within 3 days. Take antibiotics as prescribed. Clean the finger with soap and water every day to keep it from getting infected. If you notice any pus draining or pus buildup please return as you may need an incision and drainage. Keep the wound clean and dry. Coding Level of Care Code ED Farm Manager for Rosa Fwfeliciano Exam Comprehensive
[2021-01-10 12:43] VITALS: PULSE 98; RESP 16; O2SAT 95
== END 2021-01-10 12:44 | disposition home or self-care (01) ==
PROVIDERS: Emergency Provider Family Medicine; PCP Nurse Practitioner Family
DX: M79.89 Other specified soft tissue disorders (principal); L03.011 Cellulitis of right finger; Z79.4 Long term (current) use of insulin; E11.9 Type 2 diabetes mellitus without complications
CPT/HCPCS: 99281

== ENCOUNTER → 2021-05-02 14:32 | Outpatient (BNVA) | payer OTHER, SELFPAY | PROVIDERS: PCP Nurse Practitioner Family; Visit Provider Nurse Practitioner Family | DX: Z20.822 Contact with and (suspected) exposure to COVID-19 (principal); J06.9 Acute upper respiratory infection, unspecified | CPT/HCPCS: 87635 ==

== ENCOUNTER 2021-06-07 20:33 | Emergency (ER) | payer MEDICAID, SELFPAY ==
[2021-06-07 20:54] VITALS: BP 145/88; PULSE 96; RESP 18; TEMP 37.3; O2SAT 98; BMI 24.3
--- NOTE | 2021-06-07 21:14 | W.ED.WOUNDLC ---
HPI - Wound/Laceration General: Chief Complaint: Wound/Laceration Stated Complaint: left thumb lac/hand vs table saw Time Seen by Provider: 06/07/21 21:14 History of Present Illness: HPI narrative: 50-year-old male patient comes in for injury to the left thumb. Patient was using a table saw today and was cutting a piece of plastic when it shifted on him causing him to injure his thumb. Patient moves hand without any difficulty. Patient has a laceration to the thumb pad of the left hand. 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 Physical Exam Const: COMMON NORMALS: no acute distress and patient oriented x3 GENERAL APPEARANCE: cooperative HENMT: COMMON NORMALS: normocephalic and Normal external nose present HEAD & SCALP: normal to inspection and normocephalic NOSE: Normal external nose present Eye: GENERAL EYE: appearance normal, both eyes and all related structures Neck/C-Spine: COMMON NORMALS: full ROM Chest: COMMONS NORMALS: normal inspection of the chest Resp: COMMON NORMALS: normal respiratory effort EFFORT & INSPECTION: Yes able to speak in complete sentences Cardio: COMMON NORMALS: regular rate and regular rhythm RATE: regular rate RHYTHM: regular rhythm GI: COMMON NORMALS: non-tender Extremity: COMMON NORMALS: normal to inspection Neuro: COMMON NORMALS: patient oriented x3 and moves all extremities Psych: COMMON NORMALS: mental status grossly normal and cooperative Skin: NARRATIVE SKIN EXAM: Patient has a injury to the left thumb. On exam there is a half a centimeter laceration extending into the subcutaneous tissue, he also has a 3 cm x 1 cm abrasion/avulsion to the pad of the thumb. Procedures Laceration Laceration 1: Site: hand Side (If applicable): left Size (cm): 1 Description: irregular Depth: simple, single layer Pre-repair: wound explored and irrigated extensively Skin layer closed with: nylon Size (cm): 4-0 Number of sutures: 1 Technique: simple, interrupted Course Vital Signs: Vital signs: Vital Signs Temperature 99.2 F 06/07/21 20:54 Pulse Rate 96 06/07/21 20:54 Respiratory Rate 18 06/07/21 20:54 Blood Pressure 145/88 06/07/21 20:54 Pulse Oximetry 98 06/07/21 20:54 MDM - Wound/Laceration MDM Narrative: Medical decision making narrative: 50-year-old male patient comes in for evaluation of injury to the left thumb. On exam patient has an abrasion/avulsion to the pad of the left thumb. There is a subcutaneous laceration is approximately 1 cm but the rest of the injury is 3 x 1 cm and it is mainly an erosion of the epidermis to the dermal layer. It is just in that 1 cm that the skin is cut deep enough into the subcutaneous tissue. Differential diagnosis includes need for prophylaxis tetanus, concern for an wound infection, foreign body, bony injury, laceration. X-ray noted no injury to the bone, tetanus was up-to-date. Wound laceration was closed with 1 suture. The remainder of the wound was dressed with nonstick dressing with recommendations for using ointment and dressing to protect wound until healed. Patient was also started on clindamycin 300 twice a day for 7 days for prophylaxis due to his diabetes history. Patient reported understanding and agreed to plan. Discharge Plan Discharge Patient Disposition: Home Clinical Impression: Laceration of left thumb Qualifiers: Encounter type: initial encounter Damage to nail status: without damage Foreign body presence: without foreign body Qualified Code(s): S61.012A - Laceration without foreign body of left thumb without damage to nail, initial encounter Condition: Stable Prescriptions: New clindamycin HCl 300 mg capsule 300 mg PO BID 7 Days Qty: 14 RF: 0 No Action metformin 1,000 mg Tablet 1,000 mg PO BID RF: 0 Rybelsus 3 mg Tablet 3 mg PO DAILY RF: 0 Lantus U-100 Insulin 100 unit/mL Solution 5 unit SUBCUT BID RF: 0 ascorbate calcium (vitamin C) 500 mg Tablet 500 mg PO DAILY RF: 0 Discharge Orders: Discharge ED (Routine); Ordered 06/07/21 Ordered By: Hebert Walker Referrals: Rambo Gardner NP [Primary Care Provider] - Discharge Diet: Usual diet Discharge Activity: Increase activity as tolerated Patient Instructions: Opioid Safety, Wound Care (General) Activity Restrictions/Additional Instructions: Keep wound clean and dry. Suture out in 7 days. Dress wound to keep it clean. Use a nonstick dressing and ointment as needed. Follow-up with primary care in 1 week for recheck. Return to the ER for new concerns. Coding Level of Care Code ED Pediatric Oncology Nurse for Rosa 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
--- NOTE | 2021-06-07 21:16 | XRR_ITS ---
PROCEDURE INFORMATION: Exam: XR Left Hand Exam date and time: 06/07/2021 9:16 PM Age: 50 years old Clinical indication: Injury or trauma; Laceration; Finger; Left; Injury date: 06/07/2021; Injury details: Cut thumb with table saw on accident TECHNIQUE: Imaging protocol: XR Left hand. Views: 3 or more views. COMPARISON: No relevant prior studies available. FINDINGS: Bones/joints: Small lucency in the base of the distal thumb phalanx. No visible fracture fragment. The bones are otherwise intact and in normal alignment. Soft tissues: Normal. XR/XR hand LT min 3V* [id number] IMPRESSION: 1. Small lucency in the base of the distal thumb phalanx could represent a region of traumatic bone loss although a fracture fragment is not visualized.
[2021-06-07] MEDS: clindamycin 150 mg Capsule 300 MG PO (22:14)
[2021-06-07 22:40] VITALS: BP 130/80; PULSE 80; RESP 18; TEMP 36.7; O2SAT 98
== END 2021-06-07 22:40 | disposition home or self-care (01) ==
PROVIDERS: Emergency Provider Nurse Practitioner Family; PCP Nurse Practitioner Family
DX: S61.012A Laceration without foreign body of left thumb without damage to nail, initial encounter (principal); W31.2XXA Contact with powered woodworking and forming machines, initial encounter
CPT/HCPCS: 12001; 73130; 99283

== ENCOUNTER 2021-06-17 17:34 | Emergency (ER) | payer MEDICAID, SELFPAY ==
[2021-06-17 17:52] VITALS: BP 102/66; PULSE 101; RESP 18; TEMP 37.3; O2SAT 97; BMI 24.3
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
[2021-06-18 02:11] VITALS: BP 148/96; PULSE 103; RESP 16; O2SAT 97
[2021-06-18 02:24] VITALS: BP 133/85; PULSE 93; RESP 16; O2SAT 98
--- NOTE | 2021-06-18 10:04 | DCPLANNER ---
print production manager had message to schedule a follow up appointment for patient with ENT. print production manager emailed patients information to Mirna French and Lo at [facility] General Surgery / ENT. Patients information will be printed and reviewed. Clinic will call patient with appointment information.
[2021-06-19 15:49] LABS: Coronavirus Test Green County Not Detected
--- NOTE | 2021-06-19 16:15 | PC.NURSE ---
notified pt of negative covid results
--- NOTE | 2021-06-25 07:42 | DCPLANNER ---
Laz wen sent Mirna French and Lo an email checking on follow up appointment.
--- NOTE | 2021-06-26 07:27 | DCPLANNER ---
patient services manager sent an email to Gillian at [facility] ENT clinic about appointment. patient services manager was told that clinic has tried to reach patient multiple times, and have not been able to contact patient, so a letter was mailed to patient asking him to contact clinic to schedule an appointment.
== END 2021-06-18 02:25 | disposition home or self-care (01) ==
PROVIDERS: Emergency Provider Emergency Medicine; PCP Nurse Practitioner Family
DX: B34.9 Viral infection, unspecified (principal); H72.92 Unspecified perforation of tympanic membrane, left ear; Z20.822 Contact with and (suspected) exposure to COVID-19
CPT/HCPCS: 71045; 87635; 99282

== ENCOUNTER 2021-07-12 22:12 | Emergency (ER) | payer MEDICAID, SELFPAY ==
[2021-07-12 22:36] VITALS: BP 122/82; PULSE 91; RESP 16; TEMP 36.7; O2SAT 98; BMI 25.0
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
[2021-07-12] MEDS: ciprofloxacin 500 mg Tablet PO (22:59)
== END 2021-07-12 23:03 | disposition home or self-care (01) ==
PROVIDERS: Emergency Provider Nurse Practitioner Family; PCP Nurse Practitioner Family
DX: L03.119 Cellulitis of unspecified part of limb (principal)
CPT/HCPCS: 99283

== ENCOUNTER → 2021-09-03 14:25 | Outpatient (BNVA) | payer MEDICAID, SELFPAY | PROVIDERS: PCP Nurse Practitioner Family; Visit Provider Nurse Practitioner Family | DX: Z20.822 Contact with and (suspected) exposure to COVID-19 (principal) | CPT/HCPCS: 87426; 87635 ==

== ENCOUNTER → 2021-09-05 17:33 | Outpatient (BNVA) | payer OTHER, SELFPAY | PROVIDERS: PCP Nurse Practitioner Family; Visit Provider Registered Nurse Neonatal Intensive Care | DX: Z20.822 Contact with and (suspected) exposure to COVID-19 (principal); R68.89 Other general symptoms and signs | CPT/HCPCS: 87400; 87635 ==

== ENCOUNTER 2021-09-06 18:03 | Inpatient (IN) | payer MEDICAID, SELFPAY ==
[2021-09-06 18:22] VITALS: BP 148/97; PULSE 111; RESP 18; TEMP 36.5; O2SAT 97; BMI 25.0
[2021-09-06 18:43] LABS: Glucose Point of Care 504 mg/dL (70-110)
--- NOTE | 2021-09-06 19:07 | ED_ITS ---
HPI - Extremity Problem General: Chief complaint: Extremity Injury, Lower Stated complaint: Lt Big Toe Infection Time Seen by Provider: 09/06/21 19:07 History of Present Illness: HPI Narrative: Mr. Roman is a 51-year-old gentleman with significant past medical history of diabetes who currently is diet-controlled who presents emerged department due to foot wound. He reports a longstanding history of diabetic neuropathy and previously was poorly controlled is a diabetic. He developed osteomyelitis multiple times. He presents today with worsening wounds. He has a chronic nonhealing wound on bilateral shins which been treated topically and by a primary care provider without significant improvement. Additionally he has developed worsening redness on the plantar aspect and circumferentially around the great toe of his left foot correlating with a wound. He has mild associated generalized symptoms and was noted to be tachycardic and hyperglycemic today. His significant other has similar symptoms so he is unsure if his symptoms are related to a viral infection, though he is tested negative for Covid, or his wound. He otherwise denies changes in health, no other specific exacerbating or alleviating factors identified. 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 No acute distress. Eyes - PERRL, no conjunctival injection ENMT - Atraumatic external nose and ears. Dry mucous membranes NECK - supple. trachea midline CARDIOVASCULAR -tachycardic rate and regular rhythm. Peripheral pulses 2+ and equal RESPIRATORY -clear to auscultation bilaterally. ABDOMEN/GI - Nontender/Nondistended. MSK - Extremities without obvious deformity . Bilateral anterior morelos chronic appearing wounds. Left foot with great toe circumferential erythema and edema. On the base of the toe there is an ulceration without obvious deep track. SKIN - Warm, Dry, see MSK for discussion of skin changes associated with the patient complained NEURO - alert and appropriately oriented. Moves all extremities equally. Course ED course: - Patient was seen and evaluated by me at bedside - Patient placed on cardiac monitors, IV access obtained - Initial evaluation notable for no acute distress, nontoxic appearance. Patient is mildly tachycardic and noted to have hyperglycemia. -Fluids ordered. - Labs notable for no evidence of DKA - Imaging notable for no obvious bony erosion - Upon serial reexamination after treatment the patient was improved. Challenging situation as it is after hours and I do not have way of obtaining prior culture results. Patient certainly seems reliable regarding his medical history. 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 IV antibiotics ordered. - Based on patient history, evaluation, labs, and imaging as interpreted the most likely cause of the patient's condition is diabetic foot infection with possible osteomyelitis and history of drug-resistant organisms of unclear speciation or resistance at this time. - The results of ED evaluation were discussed with the patient including plan for admission due to requirement for level of care not available if discharged to prevent significant worsening/deterioration. -Hospitalist service contacted and agreed admit the patient. - Patient was admitted without further deterioration or significant events. Vital Signs: Vital signs: Vital Signs Temperature 97.1 F L 09/11/21 00:00 Pulse Rate 79 09/11/21 00:00 Respiratory Rate 18 09/11/21 00:00 Blood Pressure 122/76 09/11/21 00:00 Pulse Oximetry 99 09/11/21 00:00 MDM - Extremity (Nontraumatic) Medical Records: Attestation: I reviewed the patient's medical records. Lab Data: Attestation: I reviewed the patient's lab results. Labs: Lab Results 09/06/21 09/06/21 09/06/21 18:36 19:40 19:40 WBC 10.1 10^3/uL H 10 ^3/uL (4.0-10.0) RBC 5.49 10^6/uL H 10 ^6/uL (4.1-5.3) Hgb 16.3 g/dL g/dL (11.7-16.6) Hct 48.8 % % (42.0-52.0) MCV 88.9 fl fl (80-94) MCH 29.7 pg pg (28.0-34.0) MCHC 33.4 g/dL g/dL (30.0-36.0) RDW 12.1 % % (12.1-15.1) Plt Count 292 10^3/cmm 10^3 /cmm (130-400) MPV 11.0 fL H fL (7.4-10.4) Neut % (Auto) 72.2 % % Lymph % (Auto) 14.6 % % [place] % (Auto) 9.0 % % Eos % (Auto) 3.0 % % Baso % (Auto) 0.8 % % Neut # (Auto) 7.30 10^3/uL 10^3 /uL (1.8-7.7) Lymph # (Auto) 1.5 10^3/uL 10^3/ uL (0.8-4.8) [place] # (Auto) 0.9 10^3/uL 10^3/ uL (0.2-0.9) Eos # (Auto) 0.3 10^3/uL 10^3/ uL (0.0-0.8) Baso # (Auto) 0.1 10^3/uL 10^3/ uL (0.0-0.1) Nucleated RBC % (a uto) 0 % % Nucleated RBCs # 0.0 /100WBC /100W BC ESR Cancelled Sodium Potassium Chloride Carbon Dioxide Anion Gap BUN Creatinine GFR Calculation Glucose POC Glucose 504 mg/dL H* mg/d L (70-110) Estimat Average Gl ucose Hemoglobin A1c Calculated Osmolal ity Lactate Calcium Total Bilirubin AST ALT Alkaline Phosphata se C-Reactive Protein Total Protein Albumin Globulin Urine Color Urine Appearance Urine pH Ur Specific Gravit y Urine Protein Urine Glucose (UA) Urine Ketones Urine Blood Urine Nitrate Urine Bilirubin Urine Urobilinogen Ur Leukocyte Taty ase Urine RBC Urine WBC Ur Squamous Epith Cells Amorphous Sediment Urine Bacteria Serum Ketones 09/06/21 09/06/21 09/06/21 19:40 19:40 19:40 WBC RBC Hgb Hct MCV MCH MCHC RDW Plt Count MPV Neut % (Auto) Lymph % (Auto) [place] % (Auto) Eos % (Auto) Baso % (Auto) Neut # (Auto) Lymph # (Auto) [place] # (Auto) Eos # (Auto) Baso # (Auto) Nucleated RBC % (a uto) Nucleated RBCs # ESR Sodium 131 mmol/L L mmol /L (136-145) Potassium 4.6 mmol/L mmol/L (3.5-5.1) Chloride 92 mmol/L L mmol/ L (98-107) Carbon Dioxide 27 mmol/L mmol/L (22-29) Anion Gap 16.6 (5-19) BUN 15 mg/dL mg/dL (6-20) Creatinine 0.7 mg/dL mg/dL (0.7-1.2) GFR Calculation 118.4 mL/min mL/m in (90-130) Glucose 411 mg/dL H mg/dL (65-115) POC Glucose Estimat Average Gl ucose Hemoglobin A1c Calculated Osmolal ity 290 mOsm/kg mOsm/ kg (285-295) Lactate 1.0 mmol/L mmol/L (0.5-2.2) Calcium 9.1 mg/dL mg/dL (8.5-10.5) Total Bilirubin 0.5 mg/dL mg/dL (0.15-1.2) AST 11 U/L U/L (0-40) ALT 13 U/L U/L (0-41) Alkaline Phosphata se 98 IU/L IU/L (40-130) C-Reactive Protein 26.8 mg/L H mg/L (0.0-4.9) Total Protein 7.3 g/dL g/dL (6.6-8.7) Albumin 3.7 g/dL g/dL (3.5-5.2) Globulin 3.6 g/dL g/dL (1.3-4.6) Urine Color Urine Appearance Urine pH Ur Specific Gravit y Urine Protein Urine Glucose (UA) Urine Ketones Urine Blood Urine Nitrate Urine Bilirubin Urine Urobilinogen Ur Leukocyte Taty ase Urine RBC Urine WBC Ur Squamous Epith Cells Amorphous Sediment Urine Bacteria Serum Ketones Negative (Negative) 09/06/21 09/06/21 09/06/21 19:40 20:31 21:11 WBC RBC Hgb Hct MCV MCH MCHC RDW Plt Count MPV Neut % (Auto) Lymph % (Auto) [place] % (Auto) Eos % (Auto) Baso % (Auto) Neut # (Auto) Lymph # (Auto) [place] # (Auto) Eos # (Auto) Baso # (Auto) Nucleated RBC % (a uto) Nucleated RBCs # ESR Sodium Potassium Chloride Carbon Dioxide Anion Gap BUN Creatinine GFR Calculation Glucose POC Glucose 390 mg/dL H mg/dL (70-110) Estimat Average Gl ucose 298 Hemoglobin A1c 12.0 % H % (4.0-6.0) Calculated Osmolal ity Lactate Calcium Total Bilirubin AST ALT Alkaline Phosphata se C-Reactive Protein Total Protein Albumin Globulin Urine Color Yellow (Yellow) Urine Appearance Clear (CLEAR) Urine pH 5 (5-7) Ur Specific Gravit y 1.010 (1.005-1.030) Urine Protein Neg (Negative) Urine Glucose (UA) 4+ H (Normal) Urine Ketones Negative (Negative) Urine Blood 2+ H (Negative) Urine Nitrate Negative (Negative) Urine Bilirubin Neg (Negative) Urine Urobilinogen Norm mg/dL mg/dL (Negative) Ur Leukocyte Taty ase Negative (Negative) Urine RBC 0-4 /hpf H /hpf (0-2) Urine WBC None /hpf /hpf (0-5) Ur Squamous Epith Cells None /hpf /hpf (0-5) Amorphous Sediment Not Reportable Urine Bacteria Trace /hpf /hpf (NONE) Serum Ketones 09/06/21 21:17 WBC RBC Hgb Hct MCV MCH MCHC RDW Plt Count MPV Neut % (Auto) Lymph % (Auto) [place] % (Auto) Eos % (Auto) Baso % (Auto) Neut # (Auto) Lymph # (Auto) [place] # (Auto) Eos # (Auto) Baso # (Auto) Nucleated RBC % (a uto) Nucleated RBCs # ESR Sodium Potassium Chloride Carbon Dioxide Anion Gap BUN Creatinine GFR Calculation Glucose POC Glucose 282 mg/dL H mg/dL (70-110) Estimat Average Gl ucose Hemoglobin A1c Calculated Osmolal ity Lactate Calcium Total Bilirubin AST ALT Alkaline Phosphata se C-Reactive Protein Total Protein Albumin Globulin Urine Color Urine Appearance Urine pH Ur Specific Gravit y Urine Protein Urine Glucose (UA) Urine Ketones Urine Blood Urine Nitrate Urine Bilirubin Urine Urobilinogen Ur Leukocyte Taty ase Urine RBC Urine WBC Ur Squamous Epith Cells Amorphous Sediment Urine Bacteria Serum Ketones Discharge Plan Discharge Patient Disposition: Admitted As Inpatient Admit Provider: Darien Velázquez Coding Level of Care Code ED Speech Therapy Director for [facility] Nayely
--- NOTE | 2021-09-06 19:23 | XRR_ITS ---
PROCEDURE INFORMATION: Exam: XR Left Foot Exam date and time: 09/06/2021 7:23 PM Age: 51 years old Clinical indication: Other: Wound on plantar great toe; Additional info: Plantar great toe proximal wound TECHNIQUE: Imaging protocol: XR Left foot. Views: 3 or more views. COMPARISON: No relevant prior studies available. FINDINGS: Bones/joints: Resection of the distal 2nd metatarsal. Degenerative changes of the 1st tarsometatarsal and metatarsophalangeal joints. Arthrodesis of the 2nd proximal interphalangeal joint. Soft tissues: Small soft tissue ulceration in the plantar great toe at the level of the interphalangeal joint. XR/XR foot LT min 3V* [id number] IMPRESSION: 1. No acute skeletal abnormality. Radiation Dose CTDIVOL = (mGy): DLP = (mGy-cm)
[2021-09-06 19:26] VITALS: BP 174/93; PULSE 107; RESP 18; O2SAT 99
[2021-09-06] MEDS: sodium chloride 0.9% 1,000 ML 999 ML IV (19:44)
[2021-09-06 19:49] LABS: Basophils # 0.1 10^3/uL (0.0-0.1); Basophils % 0.8 %; Eosinophils # 0.3 10^3/uL (0.0-0.8); Hematocrit 48.8 % (42.0-52.0); Hemoglobin 16.3 g/dL (11.7-16.6); Lymphocytes # 1.5 10^3/uL (0.8-4.8); Lymphocytes % 14.6 %; Mean Corpuscular HGB Conc 33.4 g/dL (30.0-36.0); Mean Corpuscular Hemoglobin 29.7 pg (28.0-34.0); Mean Corpuscular Volume 88.9 fl (80-94); Monocytes # 0.9 10^3/uL (0.2-0.9); Neutrophils % 72.2 %; Nucleated Red Blood Cells % 0 %; Platelet Count 292 10^3/cmm (130-400); Red Blood Count 5.49 10^6/uL (4.1-5.3); Red Cell Distribution Width 12.1 % (12.1-15.1); White Blood Count 10.1 10^3/uL (4.0-10.0)
[2021-09-06 19:58] LABS: Ketone (Acetest) Serum Negative (Negative)
[2021-09-06 20:07] LABS: Alanine Aminotransferase 13 U/L (0-41); Albumin Level 3.7 g/dL (3.5-5.2); Alkaline Phosphatase 98 IU/L (40-130); Anion Gap 16.6 (5-19); Aspartate Amino Transferase 11 U/L (0-40); Blood Urea Nitrogen 15 mg/dL (6-20); C Reactive Protein 26.8 mg/L (0.0-4.9); Calcium 9.1 mg/dL (8.5-10.5); Carbon Dioxide 27 mmol/L (22-29); Chloride 92 mmol/L (98-107); Creatinine Clr Calc Pharmacy 151.8824; Globulin 3.6 g/dL (1.3-4.6); Glomerular Filtration Rate 118.4 mL/min (90-130); Glucose 411 mg/dL (65-115); Osmolality Calculated 290 mOsm/kg (285-295); Potassium 4.6 mmol/L (3.5-5.1); Sodium 131 mmol/L (136-145); Total Bilirubin 0.5 mg/dL (0.15-1.2); Total Protein 7.3 g/dL (6.6-8.7)
[2021-09-06 20:34] LABS: Glucose Point of Care 390 mg/dL (70-110)
[2021-09-06] MEDS: insulin regular-human 100 units/1 mL 10 UNIT IVP (20:34)
[2021-09-06] MEDS: cefTRIAXone 1,000 MG in sodium chloride 0.9% (plus) 50 ML 100 MG IV (20:48)
[2021-09-06 21:20] LABS: Glucose Point of Care 282 mg/dL (70-110)
[2021-09-06 21:35] LABS: Add Urine Microscopic? YES; Bilirubin Urine Neg (Negative); Blood Urine 2+ (Negative); Glucose Urine UA 4+ (Normal); Ketones Urine Negative (Negative); Leukocyte Esterase Urine Negative (Negative); Nitrate Urine Negative (Negative); Protein Urine Neg (Negative); Urine Appearance Clear (CLEAR); Urine Color Yellow (Yellow); Urobilinogen Urine Norm (Negative); pH Urine 5 (5-7)
[2021-09-06 21:36] LABS: Add Urine Culture? No; Bacteria Urine TRACE /hpf; RBC Urine 0-4 /hpf (0-2)
[2021-09-06 21:44] VITALS: BP 112/70; PULSE 82; RESP 18; O2SAT 100
--- NOTE | 2021-09-06 23:36 | P.HP_ITS ---
Providers/Chief Complaint Admitting Physician: Darien Velázquez Primary Care Provider: Rambo Gardner NP Chief Complaint: Lt Big Toe Infection History of Present Illness Rock Roman is a 51 year old male with past medical history of diabetes, recurrent lower extremity cellulitis and history of osteomyelitis who is presenting with complaints of increased redness around the wound on the morelos and increased swelling, redness in the left great toe. The patient has history of MRSA. According to him his previous cultures revealed MRSA which was resistant to most of the antibiotics. It was sensitive to Bactrim but he could not use it due to sulfa allergies. Doxycycline was tried but did not help with the infection. He reports that the infection causes increased blood sugar levels. Currently his diabetes is controlled with diet. He denies fevers or chills, nausea or vomiting, diarrhea. No chest pain, shortness of breath, cough, palpitations. Review of Systems General: Reports: 10 or more systems reviewed and unremarkable except in HPI and below Medications/Allergies Home Medications Medication Instructions Recorded Confirmed Last Taken Type ascorbate calcium (vitamin C) 500 mg PO DAILY 11/23/20 09/06/21 11/23/20 History Allergies Allergy/AdvReac Type Severity Reaction Status Date / Time codeine Allergy ALGY-Rash Verified 09/03/21 13:53 Penicillins Allergy ADR-Vomitin Verified 09/03/21 13:53 g Sulfa (Sulfonamide Allergy ALGY-Bliste Verified 09/03/21 13:53 Antibiotics) r PFSH Acute PFSH: Surgical History History of carpal tunnel release History of foot surgery History of nasal surgery History of tonsillectomy Social History Smoking and tobacco status: never smoked Current occupational status: unemployed 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 No acute distress. Mood and affect are appropriate. Responses are adequate. Skin is warm and dry. Muscle exam is Eyes PERRL, extraocular muscles are intact. No icterus. Neck supple. No JVD Lungs are clear to auscultation bilaterally. Heart S1, S2, regular Abdomen soft, nontender, bowel sounds are present Extremities no edema, cyanosis or calf tenderness bilaterally. He has redness on his shins surrounding small superficial wounds. No significant discharge. The patient also has very prominent swelling, redness and hyperemia in his left great toe. There is ulcer at the base of his great toe on the plantar surface. Minimal discharge. It looks like he has surrounding fluid collection. No focal weakness. Normal speech. No facial asymmetry Data : 09/06/21 19:40 09/06/21 19:40 Other Labs: Laboratory Results WBC 10.1 10^3/uL (4.0-10.0) H 09/06/21 19:40 RBC 5.49 10^6/uL (4.1-5.3) H 09/06/21 19:40 Hgb 16.3 g/dL (11.7-16.6) 09/06/21 19:40 Hct 48.8 % (42.0-52.0) 09/06/21 19:40 MCV 88.9 fl (80-94) 09/06/21 19:40 MCH 29.7 pg (28.0-34.0) 09/06/21 19:40 MCHC 33.4 g/dL (30.0-36.0) 09/06/21 19:40 RDW 12.1 % (12.1-15.1) 09/06/21 19:40 Plt Count 292 10^3/cmm (130-400) 09/06/21 19:40 MPV 11.0 fL (7.4-10.4) H 09/06/21 19:40 Neut % (Auto) 72.2 % 09/06/21 19:40 Lymph % (Auto) 14.6 % 09/06/21 19:40 Stewart % (Auto) 9.0 % 09/06/21 19:40 Eos % (Auto) 3.0 % 09/06/21 19:40 Baso % (Auto) 0.8 % 09/06/21 19:40 Neut # (Auto) 7.30 10^3/uL (1.8-7.7) 09/06/21 19:40 Lymph # (Auto) 1.5 10^3/uL (0.8-4.8) 09/06/21 19:40 Stewart # (Auto) 0.9 10^3/uL (0.2-0.9) 09/06/21 19:40 Eos # (Auto) 0.3 10^3/uL (0.0-0.8) 09/06/21 19:40 Baso # (Auto) 0.1 10^3/uL (0.0-0.1) 09/06/21 19:40 Nucleated RBC % (auto) 0 % 09/06/21 19:40 Nucleated RBCs # 0.0 /100WBC 09/06/21 19:40 Sodium 131 mmol/L (136-145) L 09/06/21 19:40 Potassium 4.6 mmol/L (3.5-5.1) 09/06/21 19:40 Chloride 92 mmol/L (98-107) L 09/06/21 19:40 Carbon Dioxide 27 mmol/L (22-29) 09/06/21 19:40 Anion Gap 16.6 (5-19) 09/06/21 19:40 BUN 15 mg/dL (6-20) 09/06/21 19:40 Creatinine 0.7 mg/dL (0.7-1.2) 09/06/21 19:40 GFR Calculation 118.4 mL/min (90-130) 09/06/21 19:40 Glucose 411 mg/dL (65-115) H 09/06/21 19:40 POC Glucose 282 mg/dL (70-110) H 09/06/21 21:17 Calculated Osmolality 290 mOsm/kg (285-295) 09/06/21 19:40 Lactate 1.0 mmol/L (0.5-2.2) 09/06/21 19:40 Calcium 9.1 mg/dL (8.5-10.5) 09/06/21 19:40 Total Bilirubin 0.5 mg/dL (0.15-1.2) 09/06/21 19:40 AST 11 U/L (0-40) 09/06/21 19:40 ALT 13 U/L (0-41) 09/06/21 19:40 Alkaline Phosphatase 98 IU/L (40-130) 09/06/21 19:40 C-Reactive Protein 26.8 mg/L (0.0-4.9) H 09/06/21 19:40 Total Protein 7.3 g/dL (6.6-8.7) 09/06/21 19:40 Albumin 3.7 g/dL (3.5-5.2) 09/06/21 19:40 Globulin 3.6 g/dL (1.3-4.6) 09/06/21 19:40 Urine Color Yellow (Yellow) 09/06/21 21:11 Urine Appearance Clear (CLEAR) 09/06/21 21:11 Urine pH 5 (5-7) 09/06/21 21:11 Ur Specific [place] 1.010 (1.005-1.030) 09/06/21 21:11 Urine Protein Neg (Negative) 09/06/21 21:11 Urine Glucose (UA) 4+ (Normal) H 09/06/21 21:11 Urine Ketones Negative (Negative) 09/06/21 21:11 Urine Blood 2+ (Negative) H 09/06/21 21:11 Urine Nitrate Negative (Negative) 09/06/21 21:11 Urine Bilirubin Neg (Negative) 09/06/21 21:11 Urine Urobilinogen Norm mg/dL (Negative) 09/06/21 21:11 Ur Leukocyte Esterase Negative (Negative) 09/06/21 21:11 Urine RBC 0-4 /hpf (0-2) H 09/06/21 21:11 Urine WBC None /hpf (0-5) 09/06/21 21:11 Ur Squamous Epith Cells None /hpf (0-5) 09/06/21 21:11 Amorphous Sediment Not Reportable 09/06/21 21:11 Urine Bacteria Trace /hpf (NONE) 09/06/21 21:11 Serum Ketones Negative (Negative) 09/06/21 19:40 Impressions Foot X-Ray 09/06/21 19:23 IMPRESSION: 1. No acute skeletal abnormality. Radiation Dose CTDIVOL = (mGy): DLP = (mGy-cm) Micro: Microbiology 09/06/21 19:40 Blood Culture - Preliminary Blood SPECIMEN COLLECTED A&P Assessment and plan (1) Cellulitis: Status: Acute (2) Foot ulcer, left: Status: Acute (3) Osteomyelitis: Status: Acute (4) History of MRSA infection: Status: Acute (5) Diabetes: Status: Acute Additional A&P Information 51-year-old male with past medical history of diabetes which is currently controlled with diet only, history of recurrent cellulitis, history of diabetic foot ulcer and osteomyelitis, history of MRSA who is presenting with complaints of recurrent cellulitis in the lower extremities and swelling of the left great toe. Left foot cellulitis associated with diabetic foot ulcer. Osteomyelitis and abscess is suspected. He also has several other smaller ulcers on his shins bilaterally with surrounding cellulitis. He failed outpatient antibiotics. Will order MRI to rule out abscess and osteomyelitis in the toe. Will continue vancomycin and Rocephin. We will attempt to obtain a culture from the ulcer. The patient does not want wound care or podiatry consult. He has specialist out of town and would want to follow-up with them. Diabetes. We will start him on insulin sliding scale. We will check his A1c level. Hyponatremia. Mild. I suspect this is due to hyperglycemia. DVT prophylaxis. Lovenox. CODE STATUS. He wants to be full code. Plan of care was discussed with the patient. He verbalized understanding and agreement. The encounter including physical examination was on September 06, 2021 at about 2300 p.m. That was the date of service. Attestations Medical Necessity Statement*: Based on my assessment of patient's diagnosis a nd plan of care I expect that the patient will spend more than 2 midnights in the hospital. Coding Level of Care Code Acute Rn Compliance for [facility] Fwd Diagnoses Cellulitis L03.90 Foot ulcer, left L97.529 Osteomyelitis M86.9 History of MRSA infection Z86.14 Diabetes E11.9
[2021-09-07 00:38] VITALS: BP 136/88; PULSE 89; RESP 18; TEMP 36.7; O2SAT 99
[2021-09-07 01:00] VITALS: BMI 24.3
[2021-09-07] MEDS: enoxaparin 40 mg/0.4 mL Syringe SUBCUT (01:27)
[2021-09-07 04:00] VITALS: BP 106/69; PULSE 87; RESP 16; TEMP 36.6; O2SAT 95
[2021-09-07 06:00] LABS: Estmated Average Glucose 298
[2021-09-07 06:24] LABS: Glucose Point of Care 235 mg/dL (70-110)
[2021-09-07] MEDS: vancomycin 1,250 MG/250 ML PIGGYBACK 250 MG IV ×3 (06:46→21:47)
[2021-09-07 07:49] VITALS: BP 125/78; PULSE 94; RESP 16; TEMP 36.8; O2SAT 96
[2021-09-07] MEDS: cefTRIAXone 1,000 MG in sodium chloride 0.9% (plus) 50 ML 100 MG IV (08:12)
[2021-09-07] MEDS: ascorbic acid 500 mg Tablet PO (08:12)
[2021-09-07] MEDS: insulin lispro 100 unit/1 mL SUBCUT ×4 (08:19→21:47)
[2021-09-07 11:00] LABS: Glucose Point of Care 243 mg/dL (70-110)
[2021-09-07 11:28] VITALS: BP 146/81; PULSE 92; RESP 16; TEMP 36.7; O2SAT 96
[2021-09-07 15:19] VITALS: BP 129/77; PULSE 85; RESP 16; TEMP 36.7; O2SAT 95
--- NOTE | 2021-09-07 16:53 | PM.PN ---
Subjective Subjective: Interval history: Patient was seen and examined this morning, left great toe swelling and redness is improving significantly, denies any other complaint Medications: Reviewed: Yes Vitals/I&O/Wt Last Vital Signs Temp 98.1 F 09/07/21 15:19 Pulse 85 09/07/21 15:19 Resp 16 09/07/21 15:19 BP 129/77 09/07/21 15:19 Pulse Ox 95 09/07/21 15:19 09/07/21 09/07/21 09/07/21 06:59 14:59 22:59 Intake Total 500 / 1550 540 / 540 250 / 790 Output Total 700 / 700 Balance 500 / 1550 540 / 540 -450 / 90 Weight last 48 hrs Weight 88.451 kg Weight 90.718 kg Physical Exam Const: COMMON NORMALS: patient oriented x3 HENMT: COMMON NORMALS: normocephalic and atraumatic HEAD & SCALP: normocephalic and atraumatic Resp: COMMON NORMALS: clear to auscultation bilaterally AUSCULTATION: clear to auscultation bilaterally Cardio: COMMON NORMALS: regular rate, regular rhythm, S1 normal heart sound present, S2 normal heart sound present, No gallops present (Cardio), No murmurs present (Cardio), No rub (Cardio) and Peripheral pulses 2+ throughout RATE: regular rate RHYTHM: regular rhythm HEART SOUNDS: S1 normal heart sound present and S2 normal heart sound present PERIPHERAL PULSES: Peripheral pulses 2+ throughout GI: COMMON NORMALS: Normal to inspection, nondistended, normoactive bowel sounds present, Soft to palpation, non-tender, No hepatosplenomegaly present and no masses AUSCULTATION: Yes normoactive bowel sounds PALPATION: Yes Soft to palpation and Yes No hepatosplenomegaly present RECTAL EXAM: Yes deferred Extremity: NARRATIVE EXTREMITY EXAM: Redness and swelling of left great toe Neuro: COMMON NORMALS: patient oriented x3 Data : 09/06/21 19:40 09/06/21 19:40 Micro: Microbiology 09/07/21 04:46 Blood Culture - Preliminary Blood SPECIMEN COLLECTED 09/06/21 19:40 Blood Culture - Preliminary Blood SPECIMEN COLLECTED A&P Assessment and plan (1) Cellulitis: Cellulitis of left great toe: Rule out osteomyelitis: X-ray left feet: No acute skeletal abnormality. Pending MRI of left foot ESR: CRP: 26 Continue vancomycin and ceftriaxone Status: Acute (2) Foot ulcer, left: Status: Acute (3) Osteomyelitis: Status: Acute (4) History of MRSA infection: Status: Acute (5) Diabetes: Status: Acute Additional A&P Information 51-year-old male with past medical history of diabetes which is currently controlled with diet only, history of recurrent cellulitis, history of diabetic foot ulcer and osteomyelitis, history of MRSA who is presenting with complaints of recurrent cellulitis in the lower extremities and swelling of the left great toe. Left foot cellulitis associated with diabetic foot ulcer. Osteomyelitis and abscess is suspected. He also has several other smaller ulcers on his shins bilaterally with surrounding cellulitis. He failed outpatient antibiotics. Will order MRI to rule out abscess and osteomyelitis in the toe. Will continue vancomycin and Rocephin. We will attempt to obtain a culture from the ulcer. The patient does not want wound care or podiatry consult. He has specialist out of town and would want to follow-up with them. Diabetes. We will start him on insulin sliding scale. We will check his A1c level. Hyponatremia. Mild. I suspect this is due to hyperglycemia. DVT prophylaxis. Lovenox. CODE STATUS. He wants to be full code. Plan of care was discussed with the patient. He verbalized understanding and agreement. The encounter including physical examination was on September 06, 2021 at about 2300 p.m. That was the date of service. Attestations Medical Necessity Statement*: Patient needs to be in hospital for need of IV antibiotic. Coding Level of Care Code Acute Adjunct Communications Faculty Member for [facility] Diagnoses Cellulitis L03.90 Foot ulcer, left L97.529 Osteomyelitis M86.9 History of MRSA infection Z86.14 Diabetes E11.9
[2021-09-07 16:54] LABS: Glucose Point of Care 259 mg/dL (70-110)
[2021-09-07 19:49] LABS: Vancomycin Trough 18.3 ug/mL (10-15)
[2021-09-07 20:00] VITALS: BP 138/83; PULSE 91; RESP 17; TEMP 37.1; O2SAT 95
[2021-09-07 20:45] LABS: Glucose Point of Care 316 mg/dL (70-110)
[2021-09-08] VITALS: BP 128/81; PULSE 89; RESP 17; TEMP 36.8; O2SAT 92
[2021-09-08] MEDS: enoxaparin 40 mg/0.4 mL Syringe SUBCUT (00:13)
[2021-09-08] MEDS: TRAMadol 50 mg Tablet PO (03:00)
[2021-09-08] MEDS: acetaminophen 325 mg Tablet 650 MG PO (03:00)
[2021-09-08 04:00] VITALS: BP 127/78; PULSE 87; RESP 16; TEMP 36.4; O2SAT 98
[2021-09-08] MEDS: vancomycin 1,250 MG/250 ML PIGGYBACK 250 MG IV ×3 (05:27→21:30)
[2021-09-08 05:50] LABS: Basophils # 0.1 10^3/uL (0.0-0.1); Eosinophils # 0.3 10^3/uL (0.0-0.8); Eosinophils % 4.2 %; Hematocrit 45.6 % (42.0-52.0); Hemoglobin 15.3 g/dL (11.7-16.6); Lymphocytes # 1.6 10^3/uL (0.8-4.8); Lymphocytes % 20.6 %; Mean Corpuscular HGB Conc 33.6 g/dL (30.0-36.0); Mean Corpuscular Hemoglobin 29.6 pg (28.0-34.0); Mean Corpuscular Volume 88.2 fl (80-94); Mean Platelet Volume 10.8 fL (7.4-10.4); Monocytes # 0.8 10^3/uL (0.2-0.9); Monocytes % 10.3 %; Neutrophils # 4.99 10^3/uL (1.8-7.7); Neutrophils % 63.5 %; Nucleated Red Blood Cells % 0 %; Platelet Count 268 10^3/cmm (130-400); Red Blood Count 5.17 10^6/uL (4.1-5.3); Red Cell Distribution Width 12.1 % (12.1-15.1); White Blood Count 7.9 10^3/uL (4.0-10.0)
[2021-09-08 06:15] LABS: Anion Gap 15.9 (5-19); Blood Urea Nitrogen 16 mg/dL (6-20); Calcium 8.6 mg/dL (8.5-10.5); Carbon Dioxide 24 mmol/L (22-29); Chloride 100 mmol/L (98-107); Glomerular Filtration Rate 141.5 mL/min (90-130); Glucose 242 mg/dL (65-115); Magnesium 1.7 mg/dL (1.7-2.3); Osmolality Calculated 291 mOsm/kg (285-295); Potassium 3.9 mmol/L (3.5-5.1); Sodium 136 mmol/L (136-145)
[2021-09-08 06:48] LABS: Glucose Point of Care 235 mg/dL (70-110)
[2021-09-08 07:11] VITALS: BP 109/72; PULSE 73; RESP 15; TEMP 36.9; O2SAT 99
[2021-09-08] MEDS: insulin lispro 100 unit/1 mL SUBCUT ×4 (08:50→21:31)
[2021-09-08] MEDS: ascorbic acid 500 mg Tablet PO (08:50)
[2021-09-08] MEDS: cefTRIAXone 1,000 MG in sodium chloride 0.9% (plus) 50 ML 100 MG IV (08:50)
[2021-09-08] MEDS: polyethylene glycol 3350 Pkt 17 gm PO ×2 (09:41→17:12)
[2021-09-08 10:45] LABS: Glucose Point of Care 323 mg/dL (70-110)
[2021-09-08 11:56] VITALS: BP 144/80; PULSE 79; RESP 15; TEMP 36.8; O2SAT 99
[2021-09-08 16:00] VITALS: BP 126/82; PULSE 93; RESP 17; TEMP 36.7; O2SAT 97
[2021-09-08 17:05] LABS: Glucose Point of Care 219 mg/dL (70-110)
--- NOTE | 2021-09-08 18:06 | P.PN_ITS ---
Subjective Subjective: Interval history: Patient was seen and examined this morning, left great toe swelling and redness is improved Medications: Reviewed: Yes Vitals/I&O/Wt Last Vital Signs Temp 98.1 F 09/08/21 16:00 Pulse 93 09/08/21 16:00 Resp 17 09/08/21 16:00 BP 126/82 09/08/21 16:00 Pulse Ox 97 09/08/21 16:00 09/08/21 09/08/21 09/08/21 06:59 14:59 22:59 Intake Total 250 / 1770 1130 / 1130 250 / 1380 Output Total 1000 / 2550 Balance -750 / -780 1130 / 1130 250 / 1380 Weight last 48 hrs Weight 88.451 kg Weight 90.718 kg Physical Exam Const: COMMON NORMALS: patient oriented x3 HENMT: COMMON NORMALS: normocephalic and atraumatic HEAD & SCALP: normocephalic and atraumatic Resp: COMMON NORMALS: clear to auscultation bilaterally AUSCULTATION: clear to auscultation bilaterally Cardio: COMMON NORMALS: regular rate, regular rhythm, S1 normal heart sound present, S2 normal heart sound present, No gallops present (Cardio), No murmurs present (Cardio), No rub (Cardio) and Peripheral pulses 2+ throughout RATE: regular rate RHYTHM: regular rhythm HEART SOUNDS: S1 normal heart sound present and S2 normal heart sound present PERIPHERAL PULSES: Peripheral pulses 2+ throughout GI: COMMON NORMALS: Normal to inspection, nondistended, normoactive bowel sounds present, Soft to palpation, non-tender, No hepatosplenomegaly present and no masses AUSCULTATION: Yes normoactive bowel sounds PALPATION: Yes Soft to palpation and Yes No hepatosplenomegaly present RECTAL EXAM: Yes deferred Extremity: NARRATIVE EXTREMITY EXAM: Redness and swelling of left great toe Neuro: COMMON NORMALS: patient oriented x3 Data : 09/08/21 05:18 09/08/21 05:18 Micro: Microbiology 09/07/21 13:45 Wound Culture - Preliminary Toe - #1 Staphylococcus aureus 09/07/21 04:46 Blood Culture - Preliminary Blood NEGATIVE TO DATE 09/06/21 19:40 Blood Culture - Preliminary Blood NEGATIVE TO DATE A&P Assessment and plan (1) Cellulitis: Cellulitis of left great toe: Rule out osteomyelitis: X-ray left feet: No acute skeletal abnormality. Pending MRI of left foot ESR: CRP: 26 Wound culture: Staph aureus Continue vancomycin and ceftriaxone Status: Acute (2) Foot ulcer, left: Status: Acute (3) Osteomyelitis: Status: Acute (4) History of MRSA infection: Status: Acute (5) Diabetes: Status: Acute Additional A&P Information 51-year-old male with past medical history of diabetes which is currently controlled with diet only, history of recurrent cellulitis, history of diabetic foot ulcer and osteomyelitis, history of MRSA who is presenting with complaints of recurrent cellulitis in the lower extremities and swelling of the left great toe. Left foot cellulitis associated with diabetic foot ulcer. Osteomyelitis and abscess is suspected. He also has several other smaller ulcers on his shins bilaterally with surrounding cellulitis. He failed outpatient antibiotics. Jesse rousseau order MRI to rule out abscess and osteomyelitis in the toe. Will continue vancomycin and Rocephin. We will attempt to obtain a culture from the ulcer. The patient does not want wound care or podiatry consult. He has specialist out of town and would want to follow-up with them. Diabetes. We will start him on insulin sliding scale. We will check his A1c level. Hyponatremia. Mild. I suspect this is due to hyperglycemia. DVT prophylaxis. Lovenox. CODE STATUS. He wants to be full code. Plan of care was discussed with the patient. He verbalized understanding and agreement. The encounter including physical examination was on September 06, 2021 at about 2300 p.m. That was the date of service. Attestations Medical Necessity Statement*: Patient needs to be in hospital IV antibiotics, pending MRI. 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
[2021-09-08 20:00] VITALS: BP 155/88; PULSE 88; RESP 17; TEMP 36.7; O2SAT 96
[2021-09-08 21:03] LABS: Glucose Point of Care 181 mg/dL (70-110)
[2021-09-09] VITALS: BP 124/82; PULSE 82; RESP 17; TEMP 36.6; O2SAT 96
[2021-09-09] MEDS: enoxaparin 40 mg/0.4 mL Syringe SUBCUT (00:43)
--- NOTE | 2021-09-09 00:59 | PC.NURSE ---
patient bathed and noted to have yeast to head of penis, call placed to hospitalist and order for nystatin received
[2021-09-09] MEDS: nystatin cream 30 gm 1 APPLIC TOPICAL (01:07)
[2021-09-09 04:00] VITALS: BP 120/75; PULSE 83; RESP 17; TEMP 36.6; O2SAT 96
[2021-09-09] MEDS: vancomycin 1,250 MG/250 ML PIGGYBACK 250 MG IV ×3 (05:41→21:35)
[2021-09-09 06:28] LABS: Glucose Point of Care 301 mg/dL (70-110)
[2021-09-09 07:40] VITALS: BP 127/76; PULSE 78; RESP 16; TEMP 36.8; O2SAT 97
[2021-09-09] MEDS: insulin lispro 100 unit/1 mL SUBCUT ×4 (08:28→21:35)
[2021-09-09] MEDS: cefTRIAXone 1,000 MG in sodium chloride 0.9% (plus) 50 ML 100 MG IV (08:29)
[2021-09-09] MEDS: ascorbic acid 500 mg Tablet PO (08:30)
--- NOTE | 2021-09-09 11:00 | MR_ITS ---
WS: [id number] INDICATION: Osteomyelitis TECHNIQUE: MRI of the left foot without and with gadolinium enhancement. FINDINGS: Palpable marker placed in the area of concern along the plantar ulceration. Prior resection of the distal second metatarsal. Arthrodesis of the second PIP joint. Soft tissue edema with enhance ment consistent with cellulitis in the area of concern along the the first plantar IP joint. No evide nce of drainable abscess or fluid collection. Normal bone marrow signal in the first metatarsal, prox imal phalanx and distal phalanx. No evidence of osteomyelitis. Small amount of fluid in the first IP joint. Pes planus. 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 MR/MR foot LT wo/w con [id number] IMPRESSION: 1. No evidence of drainable abscess or osteomyelitis in the area of concern. S mall amount of fluid in the first IP joint. 2. Cellulitis with ulceration in the plantar soft tissues along the first prox imal and distal phalanx. 3. Additional nonacute findings as described above.
[2021-09-09] MEDS: gadobenate dimeglumine 20 mL vial IV (11:24)
[2021-09-09 12:00] VITALS: BP 130/81; PULSE 78; RESP 16; TEMP 36.9; O2SAT 100
[2021-09-09 12:13] LABS: Glucose Point of Care 250 mg/dL (70-110)
[2021-09-09 16:00] VITALS: BP 122/79; PULSE 81; RESP 16; TEMP 36.8; O2SAT 97
[2021-09-09 17:47] LABS: Glucose Point of Care 199 mg/dL (70-110)
[2021-09-09 20:00] VITALS: BP 130/81; PULSE 81; RESP 17; TEMP 36.3; O2SAT 93
[2021-09-09 21:09] LABS: Glucose Point of Care 233 mg/dL (70-110)
--- NOTE | 2021-09-09 22:13 | PM.PN ---
Subjective Subjective: Interval history: Patient was seen this morning, after his MRI, he tells me that his foot swelling has significantly improved, no fevers, chills, nausea, vomiting Medications: Reviewed: Yes Vitals/I&O/Wt Last Vital Signs Temp 97.4 F L 09/09/21 20:00 Pulse 81 09/09/21 20:00 Resp 17 09/09/21 20:00 BP 130/81 09/09/21 20:00 Pulse Ox 93 09/09/21 20:00 09/09/21 09/09/21 09/09/21 06:59 14:59 22:59 Intake Total 250 / 2120 650 / 650 250 / 900 Output Total 750 / 750 Balance -500 / 1370 650 / 650 250 / 900 Physical Exam Const: COMMON NORMALS: no acute distress and patient oriented x3 Neck/C-Spine: COMMON NORMALS: no JVD Resp: COMMON NORMALS: normal respiratory effort, No retractions, No use of accessory muscles and clear to auscultation bilaterally AUSCULTATION: clear to auscultation bilaterally Cardio: COMMON NORMALS: no JVD, regular rate, regular rhythm, S1 normal heart sound present and S2 normal heart sound present RATE: regular rate RHYTHM: regular rhythm HEART SOUNDS: S1 normal heart sound present and S2 normal heart sound present GI: COMMON NORMALS: Normal to inspection, nondistended, normoactive bowel sounds present, Soft to palpation and non-tender PALPATION: Yes Soft to palpation Extremity: COMMON NORMALS: no pedal edema NARRATIVE EXTREMITY EXAM: Right great toe, erythema, swelling, tender significantly improved, with the sore, measuring 2 x 2 centimeter superficial Neuro: COMMON NORMALS: patient oriented x3 Psych: COMMON NORMALS: mental status grossly normal Data : 09/08/21 05:18 09/08/21 05:18 Micro: Microbiology 09/07/21 13:45 Wound Culture - Final Toe - #1 Methicillin Resis Staph Aureus A&P Assessment and plan (1) Cellulitis: Cellulitis of left great toe: Rule out osteomyelitis: We will do an MRI X-ray left feet: No acute skeletal abnormality. ESR: Pending CRP: 26 Wound culture: Staph aureus Continue vancomycin and ceftriaxone Status: Acute (2) Foot ulcer, left: Status: Acute (3) Osteomyelitis: Status: Acute (4) History of MRSA infection: Status: Acute (5) Diabetes: Status: Acute Attestations Medical Necessity Statement*: She requires hospitalization for cellulitis right foot, concern for osteomyelitis Coding Level of Care Code Acute Rn Oncology Research for [facility] Diagnoses Cellulitis L03.90 Foot ulcer, left L97.529 Osteomyelitis M86.9 History of MRSA infection Z86.14 Diabetes E11.9
[2021-09-10] VITALS: BP 122/76; PULSE 65; RESP 17; TEMP 36.6; O2SAT 96
[2021-09-10] MEDS: enoxaparin 40 mg/0.4 mL Syringe SUBCUT (00:19)
[2021-09-10 04:00] VITALS: BP 125/82; PULSE 79; RESP 16; TEMP 36.4; O2SAT 96
[2021-09-10] MEDS: vancomycin 1,250 MG/250 ML PIGGYBACK 250 MG IV ×3 (06:11→21:33)
[2021-09-10 06:55] LABS: Glucose Point of Care 201 mg/dL (70-110)
[2021-09-10 07:52] VITALS: BP 122/74; PULSE 76; RESP 17; TEMP 36.5; O2SAT 98
[2021-09-10 07:59] LABS: Basophils # 0.1 10^3/uL (0.0-0.1); Eosinophils # 0.4 10^3/uL (0.0-0.8); Eosinophils % 4.7 %; Hematocrit 46.7 % (42.0-52.0); Hemoglobin 15.8 g/dL (11.7-16.6); Lymphocytes % 24.4 %; Mean Corpuscular HGB Conc 33.8 g/dL (30.0-36.0); Mean Corpuscular Hemoglobin 29.8 pg (28.0-34.0); Mean Corpuscular Volume 87.9 fl (80-94); Mean Platelet Volume 10.4 fL (7.4-10.4); Monocytes # 0.8 10^3/uL (0.2-0.9); Monocytes % 9.7 %; Neutrophils % 59.8 %; Nucleated Red Blood Cells % 0 %; Platelet Count 313 10^3/cmm (130-400); Red Blood Count 5.31 10^6/uL (4.1-5.3); Red Cell Distribution Width 12.1 % (12.1-15.1); White Blood Count 8.2 10^3/uL (4.0-10.0)
[2021-09-10] MEDS: insulin lispro 100 unit/1 mL SUBCUT ×4 (09:03→21:32)
[2021-09-10] MEDS: cefTRIAXone 1,000 MG in sodium chloride 0.9% (plus) 50 ML 100 MG IV (09:04)
[2021-09-10] MEDS: ascorbic acid 500 mg Tablet PO (09:04)
[2021-09-10 10:20] LABS: Alanine Aminotransferase 17 U/L (0-41); Albumin Level 3.4 g/dL (3.5-5.2); Alkaline Phosphatase 90 IU/L (40-130); Anion Gap 20.1 (5-19); Aspartate Amino Transferase 19 U/L (0-40); Blood Urea Nitrogen 18 mg/dL (6-20); C Reactive Protein 7.3 mg/L (0.0-4.9); Carbon Dioxide 20 mmol/L (22-29); Chloride 99 mmol/L (98-107); Globulin 3.6 g/dL (1.3-4.6); Glomerular Filtration Rate 101.5 mL/min (90-130); Glucose 182 mg/dL (65-115); Magnesium 1.8 mg/dL (1.7-2.3); Osmolality Calculated 287 mOsm/kg (285-295); Phosphorus 3.8 mg/dL (2.5-4.5); Potassium 4.1 mmol/L (3.5-5.1); Sodium 135 mmol/L (136-145); Total Bilirubin 0.3 mg/dL (0.15-1.2)
[2021-09-10 10:27] LABS: Procalcitonin 0.04 ng/mL (0-0.5)
[2021-09-10 11:57] VITALS: BP 131/81; PULSE 79; RESP 17; TEMP 36.4; O2SAT 99
[2021-09-10 12:12] LABS: Glucose Point of Care 233 mg/dL (70-110)
[2021-09-10] MEDS: sodium hypochlorite 0.25% Btl 473 mL 1 APPLIC TOPICAL (12:42)
[2021-09-10 14:01] LABS: Vancomycin Trough 18.6 ug/mL (10-15)
[2021-09-10 16:00] VITALS: BP 121/77; PULSE 74; RESP 16; TEMP 36.9; O2SAT 96
[2021-09-10 16:53] LABS: Glucose Point of Care 227 mg/dL (70-110)
--- NOTE | 2021-09-10 18:53 | P.PN_ITS ---
Subjective Subjective: Interval history: Patient was seen this morning, he is area of cellulitis on his going to a significantly improved, he feels that he would benefit from 1 more day of IV antibiotics Vitals/I&O/Wt Last Vital Signs Temp 98.5 F 09/10/21 16:00 Pulse 74 09/10/21 16:00 Resp 16 09/10/21 16:00 BP 121/77 09/10/21 16:00 Pulse Ox 96 09/10/21 16:00 09/10/21 09/10/21 09/10/21 06:59 14:59 22:59 Intake Total 250 / 1150 1260 / 1260 490 / 1750 Balance 250 / 1150 1260 / 1260 490 / 1750 Physical Exam Const: COMMON NORMALS: no acute distress and patient oriented x3 Resp: COMMON NORMALS: normal respiratory effort, No retractions, No use of accessory muscles and clear to auscultation bilaterally AUSCULTATION: clear to auscultation bilaterally Cardio: COMMON NORMALS: regular rate, regular rhythm, S1 normal heart sound present and S2 normal heart sound present RATE: regular rate RHYTHM: regular rhythm HEART SOUNDS: S1 normal heart sound present and S2 normal heart sound present GI: COMMON NORMALS: Normal to inspection, nondistended, normoactive bowel sounds present, Soft to palpation, non-tender, No hepatosplenomegaly present and no masses PALPATION: Yes Soft to palpation and Yes No hepatosplenomegaly present Extremity: COMMON NORMALS: no pedal edema NARRATIVE EXTREMITY EXAM: Right great toe, erythema, swelling, tender significantly improved, with the sore, measuring 2 x 2 centimeter superficial, with drainage Neuro: COMMON NORMALS: patient oriented x3 Psych: COMMON NORMALS: mental status grossly normal Data : 09/10/21 07:30 09/10/21 07:30 Micro: Microbiology 09/07/21 13:45 Wound Culture - Final Toe - #1 Methicillin Resis Staph Aureus A&P Assessment and plan (1) Cellulitis: Cellulitis of left great toe: Improving with IV antibiotics MRI 1. No evidence of drainable abscess or osteomyelitis in the area of concern. Small amount of fluid in the first IP joint. 2. Cellulitis with ulceration in the plantar soft tissues along the first proximal and distal phalanx. X-ray left feet: No acute skeletal abnormality. ESR: Pending CRP: 26 Wound culture: Staph aureus Continue vancomycin and ceftriaxone Can likely discharge in the next 24 4 8 hours Status: Acute (2) Foot ulcer, left: Status: Acute (3) Osteomyelitis: Status: Acute (4) History of MRSA infection: Status: Acute (5) Diabetes: Status: Acute Attestations Medical Necessity Statement*: Patient requires hospitalization for cellulitis, left foot Coding Level of Care Code Acute Global Security Architect for [facility] Diagnoses Cellulitis L03.90 Foot ulcer, left L97.529 Osteomyelitis M86.9 History of MRSA infection Z86.14 Diabetes E11.9
[2021-09-10 20:00] VITALS: BP 115/75; PULSE 78; RESP 17; TEMP 36.3; O2SAT 95
[2021-09-10 20:52] LABS: Glucose Point of Care 160 mg/dL (70-110)
[2021-09-11] VITALS: BP 122/76; PULSE 79; RESP 18; TEMP 36.2; O2SAT 99
[2021-09-11] MEDS: enoxaparin 40 mg/0.4 mL Syringe SUBCUT (01:34)
[2021-09-11 04:00] VITALS: BP 108/74; PULSE 78; RESP 16; TEMP 36.1; O2SAT 97
[2021-09-11 05:27] LABS: Basophils # 0.1 10^3/uL (0.0-0.1); Eosinophils # 0.3 10^3/uL (0.0-0.8); Eosinophils % 3.8 %; Hematocrit 47.8 % (42.0-52.0); Hemoglobin 15.9 g/dL (11.7-16.6); Lymphocytes # 2.3 10^3/uL (0.8-4.8); Lymphocytes % 28.9 %; Mean Corpuscular HGB Conc 33.3 g/dL (30.0-36.0); Mean Corpuscular Hemoglobin 29.2 pg (28.0-34.0); Mean Corpuscular Volume 87.7 fl (80-94); Mean Platelet Volume 10.6 fL (7.4-10.4); Monocytes # 0.6 10^3/uL (0.2-0.9); Neutrophils # 4.62 10^3/uL (1.8-7.7); Neutrophils % 58.8 %; Nucleated Red Blood Cells % 0 %; Platelet Count 334 10^3/cmm (130-400); Red Blood Count 5.45 10^6/uL (4.1-5.3); Red Cell Distribution Width 12.3 % (12.1-15.1); White Blood Count 7.9 10^3/uL (4.0-10.0)
[2021-09-11 06:00] LABS: Procalcitonin 0.03 ng/mL (0-0.5)
[2021-09-11 06:01] LABS: Alanine Aminotransferase 18 U/L (0-41); Albumin Level 3.3 g/dL (3.5-5.2); Alkaline Phosphatase 87 IU/L (40-130); Anion Gap 14.9 (5-19); Aspartate Amino Transferase 19 U/L (0-40); Blood Urea Nitrogen 17 mg/dL (6-20); C Reactive Protein 3.9 mg/L (0.0-4.9); Calcium 8.4 mg/dL (8.5-10.5); Carbon Dioxide 23 mmol/L (22-29); Chloride 101 mmol/L (98-107); Creatinine Clr Calc Pharmacy 150.2991; Globulin 3.3 g/dL (1.3-4.6); Glomerular Filtration Rate 118.4 mL/min (90-130); Glucose 215 mg/dL (65-115); Magnesium 1.7 mg/dL (1.7-2.3); Osmolality Calculated 288 mOsm/kg (285-295); Phosphorus 3.8 mg/dL (2.5-4.5); Potassium 3.9 mmol/L (3.5-5.1); Sodium 135 mmol/L (136-145); Total Bilirubin 0.3 mg/dL (0.15-1.2); Total Protein 6.6 g/dL (6.6-8.7)
[2021-09-11] MEDS: vancomycin 1,250 MG/250 ML PIGGYBACK 250 MG IV ×3 (06:29→22:06)
[2021-09-11 06:31] LABS: Glucose Point of Care 253 mg/dL (70-110)
[2021-09-11 08:00] VITALS: BP 121/81; PULSE 76; RESP 17; TEMP 36.7; O2SAT 97
[2021-09-11] MEDS: insulin lispro 100 unit/1 mL SUBCUT ×4 (08:57→22:07)
[2021-09-11] MEDS: cefTRIAXone 1,000 MG in sodium chloride 0.9% (plus) 50 ML 100 MG IV (08:57)
[2021-09-11] MEDS: ascorbic acid 500 mg Tablet PO (08:57)
[2021-09-11 11:36] LABS: Glucose Point of Care 216 mg/dL (70-110)
[2021-09-11 12:00] VITALS: BP 104/71; PULSE 88; RESP 17; TEMP 36.6; O2SAT 95
[2021-09-11] MEDS: ibuprofen 200 mg Tablet PO (12:33)
[2021-09-11] MEDS: nystatin 100,000 unit/mL UDC 5 mL 500000 UNIT PO ×3 (12:33→22:06)
[2021-09-11] MEDS: sodium hypochlorite 0.25% Btl 473 mL 1 APPLIC TOPICAL (12:34)
--- NOTE | 2021-09-11 12:59 | PM.PN ---
Subjective Subjective: Interval history: Patient was seen this morning, he continues to show improvement, no fevers, chills, no nausea, vomiting, still has some redness around the right great toe, some drainage around open sore, but overall doing better Vitals/I&O/Wt Last Vital Signs Temp 97.8 F 09/11/21 12:00 Pulse 88 09/11/21 12:00 Resp 17 09/11/21 12:00 BP 104/71 09/11/21 12:00 Pulse Ox 95 09/11/21 12:00 09/10/21 09/11/21 09/11/21 22:59 06:59 14:59 Intake Total 490 / 1750 250 / 2000 660 / 660 Balance 490 / 1750 250 / 2000 660 / 660 Physical Exam Const: COMMON NORMALS: no acute distress and patient oriented x3 Resp: COMMON NORMALS: normal respiratory effort, No retractions, No use of accessory muscles and clear to auscultation bilaterally AUSCULTATION: clear to auscultation bilaterally Cardio: COMMON NORMALS: regular rate, regular rhythm, S1 normal heart sound present and S2 normal heart sound present RATE: regular rate RHYTHM: regular rhythm HEART SOUNDS: S1 normal heart sound present and S2 normal heart sound present GI: COMMON NORMALS: Normal to inspection, nondistended, normoactive bowel sounds present, Soft to palpation and non-tender PALPATION: Yes Soft to palpation Extremity: COMMON NORMALS: no pedal edema NARRATIVE EXTREMITY EXAM: Right great toe, erythema, swelling, tender significantly improved, with the sore, measuring 2 x 2 centimeter superficial, with drainage Neuro: COMMON NORMALS: patient oriented x3 Psych: COMMON NORMALS: mental status grossly normal Data : 09/11/21 04:40 09/11/21 04:40 A&P Assessment and plan (1) Cellulitis: Cellulitis of left great toe: Improving with IV antibiotics MRI 1. No evidence of drainable abscess or osteomyelitis in the area of concern. Small amount of fluid in the first IP joint. 2. Cellulitis with ulceration in the plantar soft tissues along the first proximal and distal phalanx. X-ray left feet: No acute skeletal abnormality. 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
[2021-09-11 16:00] VITALS: BP 115/72; PULSE 87; RESP 17; TEMP 36.6; O2SAT 96
[2021-09-11 17:50] LABS: Glucose Point of Care 238 mg/dL (70-110)
[2021-09-11 20:00] VITALS: BP 118/82; PULSE 76; RESP 16; TEMP 36.1; O2SAT 95
[2021-09-11 21:18] LABS: Glucose Point of Care 246 mg/dL (70-110)
[2021-09-11] MEDS: lanolin oint 7 gm 1 APPLIC TOPICAL (22:07)
[2021-09-12] VITALS: BP 108/73; PULSE 76; RESP 18; TEMP 37.1; O2SAT 97
[2021-09-12] MEDS: enoxaparin 40 mg/0.4 mL Syringe SUBCUT (01:09)
[2021-09-12 04:00] VITALS: BP 104/70; PULSE 83; RESP 16; TEMP 36.3; O2SAT 92
[2021-09-12 06:24] LABS: Basophils # 0.1 10^3/uL (0.0-0.1); Basophils % 1.4 %; Eosinophils # 0.3 10^3/uL (0.0-0.8); Eosinophils % 3.4 %; Hematocrit 46.3 % (42.0-52.0); Hemoglobin 15.7 g/dL (11.7-16.6); Lymphocytes # 2.3 10^3/uL (0.8-4.8); Mean Corpuscular HGB Conc 33.9 g/dL (30.0-36.0); Mean Corpuscular Hemoglobin 30.1 pg (28.0-34.0); Mean Corpuscular Volume 88.7 fl (80-94); Mean Platelet Volume 10.3 fL (7.4-10.4); Monocytes # 0.7 10^3/uL (0.2-0.9); Monocytes % 9.2 %; Neutrophils # 4.43 10^3/uL (1.8-7.7); Neutrophils % 56.4 %; Nucleated Red Blood Cells % 0 %; Platelet Count 331 10^3/cmm (130-400); Red Blood Count 5.22 10^6/uL (4.1-5.3); Red Cell Distribution Width 12.1 % (12.1-15.1); White Blood Count 7.9 10^3/uL (4.0-10.0)
[2021-09-12] MEDS: vancomycin 1,250 MG/250 ML PIGGYBACK 250 MG IV (06:33)
[2021-09-12 06:55] LABS: Procalcitonin 0.04 ng/mL (0-0.5)
[2021-09-12 06:56] LABS: Glucose Point of Care 192 mg/dL (70-110)
[2021-09-12 07:06] LABS: Alanine Aminotransferase 20 U/L (0-41); Albumin Level 3.5 g/dL (3.5-5.2); Alkaline Phosphatase 81 IU/L (40-130); Aspartate Amino Transferase 18 U/L (0-40); Blood Urea Nitrogen 18 mg/dL (6-20); C Reactive Protein 2.2 mg/L (0.0-4.9); Calcium 8.5 mg/dL (8.5-10.5); Carbon Dioxide 20 mmol/L (22-29); Chloride 101 mmol/L (98-107); Globulin 3.2 g/dL (1.3-4.6); Glomerular Filtration Rate 101.5 mL/min (90-130); Glucose 185 mg/dL (65-115); Magnesium 1.7 mg/dL (1.7-2.3); Osmolality Calculated 287 mOsm/kg (285-295); Phosphorus 4.4 mg/dL (2.5-4.5); Sodium 135 mmol/L (136-145); Total Bilirubin 0.3 mg/dL (0.15-1.2); Total Protein 6.7 g/dL (6.6-8.7)
[2021-09-12 08:00] VITALS: BP 115/72; PULSE 80; RESP 18; TEMP 36.7; O2SAT 98
[2021-09-12] MEDS: ascorbic acid 500 mg Tablet PO (11:00)
[2021-09-12] MEDS: cefTRIAXone 1,000 MG in sodium chloride 0.9% (plus) 50 ML 100 MG IV (11:00)
[2021-09-12] MEDS: nystatin 100,000 unit/mL UDC 5 mL 500000 UNIT PO ×2 (11:10→13:51)
[2021-09-12] MEDS: insulin lispro 100 unit/1 mL SUBCUT ×2 (11:10→13:51)
--- NOTE | 2021-09-12 11:53 | PM.DCS ---
Discharge Providers Date of Admission: 09/06/21 21:59 Date of Discharge: September 12, 2021 Attending Provider at Admission: Darien Velázquez Attending Provider at Discharge: Chemo Weinberg MD Primary Care Provider: Rambo Gardner NP Diagnoses at Discharge Discharge Diagnosis (1) Cellulitis: Status: Acute (2) Foot ulcer, left: Status: Acute (3) Osteomyelitis: Status: Acute (4) History of MRSA infection: Status: Acute (5) Diabetes: Status: Acute Reason for Visit Reason for Visit: Lt Big Toe Infection Hospital Course Hospital Course This is a 51-year-old male with a past medical history of type 2 diabetes mellitus, who presents to [facility] for a left great toe cellulitis Left great toe cellulitis, received inpatient IV antibiotics, cultures positive for MRSA, MRI with no evidence of drainable abscess or osteomyelitis, clinically improved, discharged on Zyvox and Augmentin for 7 remaining days. For his type 2 diabetes mellitus, A1c was 12.1, discharged on insulin sliding scale, follow-up with me in 1 week with blood sugars. Physical Exam Const: COMMON NORMALS: no acute distress and patient oriented x3 Resp: COMMON NORMALS: normal respiratory effort, No retractions, No use of accessory muscles and clear to auscultation bilaterally AUSCULTATION: clear to auscultation bilaterally Cardio: COMMON NORMALS: regular rate, regular rhythm, S1 normal heart sound present and S2 normal heart sound present RATE: regular rate RHYTHM: regular rhythm HEART SOUNDS: S1 normal heart sound present and S2 normal heart sound present GI: COMMON NORMALS: Normal to inspection, nondistended, normoactive bowel sounds present, Soft to palpation and non-tender PALPATION: Yes Soft to palpation Extremity: COMMON NORMALS: no pedal edema NARRATIVE EXTREMITY EXAM: Right great toe, erythema, swelling, tender significantly improved, with the sore, measuring 2 x 2 centimeter superficial, with minimal drainage Neuro: COMMON NORMALS: patient oriented x3 Psych: COMMON NORMALS: mental status grossly normal Discharge Data Data Completed and Pending: Completed Studies During Hospitalization Category Date Time Status XR foot LT min 3V * [id number] Urgent Exams 09/06/21 19:23 [place] wo/[place] [id number] Routine MRI 09/09/21 11:00 Completed Pending at discharge Category Date Time Status Erythrocyte Sedim entation Rate Rout ine Lab 09/09/21 07:30 Received Labs from last 24 hours 09/12/21 09/12/21 09/12/21 06:29 05:51 05:51 WBC RBC Hgb Hct MCV MCH MCHC RDW Plt Count MPV Neut % (Auto) Lymph % (Auto) Mobile % (Auto) Eos % (Auto) Baso % (Auto) Neut # (Auto) Lymph # (Auto) Mobile # (Auto) Eos # (Auto) Baso # (Auto) Nucleated RBC % (a uto) Nucleated RBCs # Sodium 135 L Potassium 4.0 Chloride 101 Carbon Dioxide 20 L Anion Gap 18.0 BUN 18 Creatinine 0.8 GFR Calculation 101.5 Glucose 185 H POC Glucose 192 H Calculated Osmolal ity 287 Calcium 8.5 Phosphorus 4.4 Magnesium 1.7 Total Bilirubin 0.3 AST 18 ALT 20 Alkaline Phosphata se 81 C-Reactive Protein 2.2 Total Protein 6.7 Albumin 3.5 Globulin 3.2 Procalcitonin Cancelled 0.04 09/12/21 09/11/21 09/11/21 05:51 21:12 17:45 WBC 7.9 RBC 5.22 Hgb 15.7 Hct 46.3 MCV 88.7 MCH 30.1 MCHC 33.9 RDW 12.1 Plt Count 331 MPV 10.3 Neut % (Auto) 56.4 Lymph % (Auto) 29.0 Mobile % (Auto) 9.2 Eos % (Auto) 3.4 Baso % (Auto) 1.4 Neut # (Auto) 4.43 Lymph # (Auto) 2.3 Mobile # (Auto) 0.7 Eos # (Auto) 0.3 Baso # (Auto) 0.1 Nucleated RBC % (a uto) 0 Nucleated RBCs # 0.0 Sodium Potassium Chloride Carbon Dioxide Anion Gap BUN Creatinine GFR Calculation Glucose POC Glucose 246 H 238 H Calculated Osmolal ity Calcium Phosphorus Magnesium Total Bilirubin AST ALT Alkaline Phosphata se C-Reactive Protein Total Protein Albumin Globulin Procalcitonin Vitals: Last Vital Signs Temp 98.1 F 09/12/21 08:00 Pulse 80 09/12/21 08:00 Resp 18 09/12/21 08:00 BP 115/72 09/12/21 08:00 Pulse Ox 98 09/12/21 08:00 Discharge Plan Discharge Patient Disposition: Home Condition: Stable Prescriptions: New HySept 0.25 % Solution 1 applic topical Q24H Qty: 473 RF: 0 insulin lispro [Humalog KwikPen Insulin] 100 unit/mL insulin pen 1 unit SUBCUT QAM Qty: 15 RF: 0 linezolid [Zyvox] 600 mg tablet 600 mg PO BID 7 Days Qty: 14 RF: 0 amoxicillin-pot clavulanate [Augmentin] 875-125 mg tablet 1 tab PO BID 7 Days Qty: 14 RF: 0 Continued ascorbate calcium (vitamin C) 500 mg Tablet 500 mg PO DAILY RF: 0 SSD 1 % cream 1 applic TOPICAL BID RF: 0 Probiotic 3 billion cell Capsule 3,000 mmu cells PO DAILY RF: 0 Discharge Orders: Discharge Order (Routine); Ordered 09/12/21 Ordered By: Chemo Weinberg Referrals: Chemo Weinberg MD [Hospitalist] - 1 week Discharge Diet: Regular Discharge Activity: Resume usual activity Patient Instructions: Hypoglycemia, What is Insulin (DC), Acute Wound Care (DC), Type 2 Diabetes in the Older Adult (GEN), What to Do if Your Blood Sugar is Low (DC), Diabetes and Nutrition (ED), Type 2 Diabetes Management for Adults (DC), Opioid Safety Activity Restrictions/Additional Instructions: -Please paint Betadine iodine quarter percent, daily, daily dressing changes -Antibiotics for the next 7 days -Check blood sugars 3 times daily, record of blood sugar logs bring to my office -Inject insulin based on sliding scale provided -Only take insulin if you eat -Inject insulin before meals, 3 times daily, based on sliding scale provided Fingerstick Blood Glucose Insulin Units 141-180 mg/dl 4 units/SQ 181-220 mg/dl 6 units/SQ 221-260 mg/dl 8 units/SQ 261-300 mg/dl 10 units/SQ 301-350 mg/dl 12 units/SQ 351-400 mg/dl 14 units/SQ greater than 400 mg/dl 16 units/SQ Discharge Attestations Time Spent in Discharge Care*: less than 30 min Quality Metrics Clinical Quality Measures During this hospital stay, did patient experience: None Coding Level of Care Code Acute Chg FW DC note Diagnoses Cellulitis L03.90 Foot ulcer, left L97.529 Osteomyelitis M86.9 History of MRSA infection Z86.14 Diabetes E11.9
[2021-09-12 13:16] LABS: Glucose Point of Care 218 mg/dL (70-110)
[2021-09-12] MEDS: sodium hypochlorite 0.25% Btl 473 mL 1 APPLIC TOPICAL (13:51)
--- NOTE | 2021-09-12 13:56 | PC.CHAP ---
Pastoral Care Encounter/Spiritual Assessment Type of Contact [] Declined perinatal nurse visit [] Patient/Family/Request visit [] Outpatient visit [] Follow-up visit [] Physician referral [] Code/Alert [] Routine visit [] Staff referral [] Actively dying [] Patient sleeping [] Family support [] [] Out of room [] Palliative care [] [] Receiving care in room [] Pre-surgical visit [] Trauma [] Long length of stay [] ICU visit [x] Other: covid Relational/Emotional Strength [] Patient feels connected with others/family/visitors/staff [] Distress [] Loneliness/isolation [] Abandonment Spirituality of Patient [] Person of Marley [] Attends Voodoo of their Marley [] Believes in Prayer [] Reads Bible or Muslim materials [] There are Spiritual issues to be addressed 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 [] Prayer [] Active listening [] Non-anxious presence [] Spiritual/emotional support [] Crisis/trauma care [] Spiritual counseling [] Bereavement support [] Provided bereavement packet [] Provided Bible/devotional materials [] Provided toy/stuffed animal, coloring book to patient or family member [] Provided Communion [] Anointing/[place] [] Salvation [] Completed spiritual assessment [] Other: Impact on Illness or Injury [] Angry [] Fearful [] Anxious [] Often cries [] Exhaustion [] Unable to work [] Unable to attend church [] Unable to walk/stand [] Unable to read [] Unable to drive [] Unable to eat/drink [] Unable to sleep [] Unable to be with family [] Patient intubated [] Other: Summary covid Time spent with patient 5 mins
[2021-09-12 14:46] VITALS: BP 115/72; PULSE 80; RESP 18; TEMP 36.7; O2SAT 98
--- NOTE | 2021-09-12 14:47 | PC.NURSE ---
PT HAS DONE WELL FOR ME TODAY. PT HAS NOT HAD ANY COMPLAINTS OF PAIN. PT WILL DISCHARGE TODAY. DRESSING WAS CHANGED ON PTS FOOT. PT TOLERATED WELL. IV REMOVED. PT TOLERATED WELL. CATHETER TIP INTACT. DISCHARGE PAPERWORK GONE OVER WITH PT. ALL QUESTIONS ANSWERED. MEDICATIONS SENT TO PHARMACY OF PTS CHOICE. PT SAFELY WHEELED OUT BY THIS NURSE.
[2021-09-13 17:56] LABS: Erythrocyte Sedimentation Rate 9 mm/hr (0-10)
== END 2021-09-12 14:49 | disposition home or self-care (01) | DRG 638 ==
LOC: ER 20:20 → MEDSURG 22:33
PROVIDERS: Internal Medicine; Admitting Provider Internal Medicine; Emergency Provider Emergency Medicine; PCP Nurse Practitioner Family; Visit Provider Family Medicine
DX: E11.628 Type 2 diabetes mellitus with other skin complications (principal); L03.116 Cellulitis of left lower limb; L03.115 Cellulitis of right lower limb; E87.1 Hypo-osmolality and hyponatremia; L97.829 Non-pressure chronic ulcer of other part of left lower leg with unspecified severity; L97.819 Non-pressure chronic ulcer of other part of right lower leg with unspecified severity; L03.032 Cellulitis of left toe; B95.62 Methicillin resistant Staphylococcus aureus infection as the cause of diseases classified elsewhere; E11.621 Type 2 diabetes mellitus with foot ulcer; L97.529 Non-pressure chronic ulcer of other part of left foot with unspecified severity; E11.622 Type 2 diabetes mellitus with other skin ulcer; E11.40 Type 2 diabetes mellitus with diabetic neuropathy, unspecified; E11.65 Type 2 diabetes mellitus with hyperglycemia; R00.0 Tachycardia, unspecified; Z86.14 Personal history of Methicillin resistant Staphylococcus aureus infection; Z86.31 Personal history of diabetic foot ulcer
CPT/HCPCS: 36415; 36416; 73630; 73720; 80048; 80053; 80202; 81001; 82009; 82962; 83036; 83605; 83735; 84100; 84145; 85025; 85651; 86140; 87040; 87070; 87077; 87186; 96365; 96366; 96367; 96372; 96375; 99285; A9577; J0696; J1650; J1815; J3370; J7030; J7040

== ENCOUNTER 2021-10-22 22:46 | Emergency (ER) | payer MEDICAID, SELFPAY ==
[2021-10-22 22:53] VITALS: BP 126/84; PULSE 108; RESP 16; O2SAT 100; BMI 25.0
[2021-10-23 00:13] LABS: Basophils # 0.1 10^3/uL (0.0-0.1); Basophils % 1.3 %; Eosinophils # 0.2 10^3/uL (0.0-0.8); Eosinophils % 2.3 %; Hemoglobin 16.2 g/dL (11.7-16.6); Lymphocytes # 1.8 10^3/uL (0.8-4.8); Lymphocytes % 22.9 %; Mean Corpuscular HGB Conc 34.5 g/dL (30.0-36.0); Mean Corpuscular Hemoglobin 30.2 pg (28.0-34.0); Mean Corpuscular Volume 87.7 fl (80-94); Mean Platelet Volume 11.2 fL (7.4-10.4); Monocytes # 0.5 10^3/uL (0.2-0.9); Neutrophils # 5.21 10^3/uL (1.8-7.7); Neutrophils % 67.1 %; Nucleated Red Blood Cells % 0 %; Platelet Count 275 10^3/cmm (130-400); Red Blood Count 5.36 10^6/uL (4.1-5.3); Red Cell Distribution Width 12.5 % (12.1-15.1); White Blood Count 7.8 10^3/uL (4.0-10.0)
[2021-10-23 00:32] LABS: Alanine Aminotransferase 26 U/L (0-41); Albumin Level 3.6 g/dL (3.5-5.2); Alkaline Phosphatase 91 IU/L (40-130); Blood Urea Nitrogen 14 mg/dL (6-20); C Reactive Protein 0.4 mg/L (0.0-4.9); Calcium 8.8 mg/dL (8.5-10.5); Carbon Dioxide 23 mmol/L (22-29); Chloride 91 mmol/L (98-107); Globulin 2.9 g/dL (1.3-4.6); Glomerular Filtration Rate 70.3 mL/min (90-130); Osmolality Calculated 290 mOsm/kg (285-295); Sodium 128 mmol/L (136-145); Total Bilirubin 0.6 mg/dL (0.15-1.2); Total Protein 6.5 g/dL (6.6-8.7)
[2021-10-23 00:40] LABS: Anion Gap 19.2 (5-19); Aspartate Amino Transferase 22 U/L (0-40); Glucose 525 mg/dL (65-115); Potassium 5.2 mmol/L (3.5-5.1)
[2021-10-23 00:58] LABS: Ketone (Acetest) Serum Negative (Negative)
[2021-10-23 01:21] VITALS: TEMP 36.5
--- NOTE | 2021-10-23 01:21 | ED_ITS ---
HPI - General Adult General: Chief complaint: General Medical Stated complaint: rash,dizzy Time Seen by Provider: 10/22/21 22:58 Source: patient Mode of arrival: ambulatory Limitations: no limitations History of Present Illness: HPI narrative: 51-year-old male has had a chronic ulcer to his right toe. Patient states that he had taken his temperature at home and was 93 was concerned that he was getting septic. States he has been on multiple different antibiotics over the last year but states that his wound is actually improving is not concerned about his wound. He denies any vomiting diarrhea denies any fevers. Denies any worsening improving factors. Associated symptoms: Deny chest pain, dyspnea, headache(s), nausea, rash or vomiting Review of Systems Const: Denies: fever(s), chills, body aches or change in appetite Eyes: Denies: blurry vision or eye discomfort ENMT: Denies: throat pain or dental pain Card: Denies: chest pain Resp: Denies: dyspnea GI: Denies: abdominal pain, nausea, vomiting or diarrhea : Denies: dysuria Musc: Denies: neck pain or back pain Skin/Breast: Denies: rash Neuro: Denies: headache(s) Psych: Denies: depression Bernard/Lymph: Denies: easy bruising All/Imm: Denies: urticaria PFSH ED PFSH: Surgical History History of carpal tunnel release History of foot surgery History of nasal surgery History of tonsillectomy Social History Smoking and tobacco status: never smoked Current occupational status: unemployed 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 Physical Exam Const: COMMON NORMALS: no acute distress, patient oriented x3 and healthy appearing HENMT: COMMON NORMALS: normocephalic and atraumatic HEAD & SCALP: normocephalic and atraumatic Eye: COMMON NORMALS: Equal, round and reactive pupils present and EOMs intact bilaterally PUPIL: Yes Equal, round and reactive pupils present Neck/C-Spine: COMMON NORMALS: full ROM and supple Chest: COMMONS NORMALS: normal inspection of the chest and normal palpation of entire chest wall Resp: COMMON NORMALS: normal respiratory effort, No retractions, No use of accessory muscles and clear to auscultation bilaterally AUSCULTATION: clear to auscultation bilaterally Cardio: COMMON NORMALS: regular rate, regular rhythm and No murmurs present (Cardio) RATE: regular rate RHYTHM: regular rhythm GI: COMMON NORMALS: Normal to inspection, nondistended, normoactive bowel sounds present, Soft to palpation, non-tender and no masses PALPATION: Yes Soft to palpation Extremity: NARRATIVE EXTREMITY EXAM: Chronic ulcer noted to left great toe no necrosis no surrounding cellulitis Neuro: COMMON NORMALS: patient oriented x3, moves all extremities and no focal motor deficits Psych: COMMON NORMALS: mental status grossly normal, Normal thought process present and cooperative THOUGHT PROCESS: Normal thought process present Skin: COMMON NORMALS: no rashes or lesions noted and no wounds GENERAL SKIN EXAM: no rashes or lesions noted Course Vital Signs: Vital signs: Vital Signs Temperature 97.7 F 10/23/21 01:21 Pulse Rate 108 H 10/22/21 22:53 Respiratory Rate 16 10/22/21 22:53 Blood Pressure 126/84 10/22/21 22:53 Pulse Oximetry 100 10/22/21 22:53 MDM - General Adult MDM Narrative: Medical decision making narrative: Very alreadyI spoke to patient at length minute if he states that I believe that I am septic as well I took my temperature at home it was 93. Patient's temperature here is 97.7 which I again personally checked while I was in the room. He did state that his wound was improving and he refused any antibiotics and did not want any antibiotics. I did inform that his blood glucose is quite elevated here knee told me that his PCP had stopped his diabetic medications month ago and he does not believe that he is a diabetic currently. I offered to check a hemoglobin A1c and offered IV fluids and insulin he refused he states that if he is not septic he does not want any further blood draws. I did inform him that his white count here was normal and his temp was normal. He states after that that he just wants to leave. I informed him we could check a lactate and I was concerned with his blood sugar being that high that he is actually diabetic and needs treatment. He can argue that he is not a diabetic and refused any other further treating and he left the emergency room at the time. Lab Data: Labs: Lab Results 10/22/21 10/22/21 10/22/21 23:57 23:57 23:57 WBC 7.8 10^3/uL 10^3/ uL (4.0-10.0) RBC 5.36 10^6/uL H 10 ^6/uL (4.1-5.3) Hgb 16.2 g/dL g/dL (11.7-16.6) Hct 47.0 % % (42.0-52.0) MCV 87.7 fl fl (80-94) MCH 30.2 pg pg (28.0-34.0) MCHC 34.5 g/dL g/dL (30.0-36.0) RDW 12.5 % % (12.1-15.1) Plt Count 275 10^3/cmm 10^3 /cmm (130-400) MPV 11.2 fL H fL (7.4-10.4) Neut % (Auto) 67.1 % % Lymph % (Auto) 22.9 % % Daniels % (Auto) 6.0 % % Eos % (Auto) 2.3 % % Baso % (Auto) 1.3 % % Neut # (Auto) 5.21 10^3/uL 10^3 /uL (1.8-7.7) Lymph # (Auto) 1.8 10^3/uL 10^3/ uL (0.8-4.8) Daniels # (Auto) 0.5 10^3/uL 10^3/ uL (0.2-0.9) Eos # (Auto) 0.2 10^3/uL 10^3/ uL (0.0-0.8) Baso # (Auto) 0.1 10^3/uL 10^3/ uL (0.0-0.1) Nucleated RBC % (a uto) 0 % % Nucleated RBCs # 0.0 /100WBC /100W BC Sodium 128 mmol/L L mmol /L (136-145) Potassium 5.2 mmol/L H mmol /L (3.5-5.1) Chloride 91 mmol/L L mmol/ L (98-107) Carbon Dioxide 23 mmol/L mmol/L (22-29) Anion Gap 19.2 H (5-19) BUN 14 mg/dL mg/dL (6-20) Creatinine 1.1 mg/dL mg/dL (0.7-1.2) GFR Calculation 70.3 mL/min L mL/ min (90-130) Glucose 525 mg/dL H* mg/d L (65-115) Calculated Osmolal ity 290 mOsm/kg mOsm/ kg (285-295) Calcium 8.8 mg/dL mg/dL (8.5-10.5) Total Bilirubin 0.6 mg/dL mg/dL (0.15-1.2) AST 22 U/L U/L (0-40) ALT 26 U/L U/L (0-41) Alkaline Phosphata se 91 IU/L IU/L (40-130) C-Reactive Protein 0.4 mg/L mg/L (0.0-4.9) Total Protein 6.5 g/dL L g/dL (6.6-8.7) Albumin 3.6 g/dL g/dL (3.5-5.2) Globulin 2.9 g/dL g/dL (1.3-4.6) Serum Ketones Negative (Negative) Discharge Plan Discharge Patient Disposition: Home Clinical Impression: Hyperglycemia Foot ulcer, left Qualifiers: Non-pressure ulcer stage: unspecified non-pressure ulcer stage Qualified Code(s): L97.529 - Non-pressure chronic ulcer of other part of left foot with unspecified severity Condition: Stable Prescriptions: No Action glucosamine HCl 500 mg tablet 500 mg PO DAILY RF: 0 shark cartilage 500 mg capsule 500 mg PO DAILY RF: 0 krill oil 500 mg capsule PO RF: 0 linezolid [Zyvox] 600 mg tablet 600 mg PO Q12H 14 Days Qty: 28 RF: 0 levofloxacin 750 mg tablet 750 mg PO DAILY 7 Days Qty: 7 RF: 0 SSD 1 % cream 1 applic TOPICAL BID RF: 0 HySept 0.25 % Solution 1 applic topical Q24H Qty: 473 RF: 0 Humalog KwikPen Insulin 100 unit/mL insulin pen 1 unit SUBCUT QAM Qty: 15 RF: 0 Discharge Orders: Discharge ED (Routine); Ordered 10/23/21 Ordered By: Milka Painting Referrals: Rambo Gardner NP [Primary Care Provider] - Discharge Diet: Advance as tolerated Discharge Activity: Resume usual activity Patient Instructions: Hyperglycemia Coding Level of Care Code ED Coding Team Lead for Chg Nayely
== END 2021-10-23 01:25 | disposition home or self-care (01) ==
PROVIDERS: Physician Assistant; Emergency Provider Emergency Medicine; PCP Nurse Practitioner Family
DX: R73.9 Hyperglycemia, unspecified (principal); L97.529 Non-pressure chronic ulcer of other part of left foot with unspecified severity
CPT/HCPCS: 80053; 82009; 85025; 86140; 99282

== ENCOUNTER → 2021-11-08 15:50 | Outpatient (BNVA) | payer MEDICAID, SELFPAY | PROVIDERS: PCP Nurse Practitioner Family; Visit Provider Emergency Medicine | DX: Z20.828 Contact with and (suspected) exposure to other viral communicable diseases (principal) | CPT/HCPCS: 87635 ==

== ENCOUNTER → 2021-11-16 16:10 | Outpatient (BNVA) | payer MEDICAID, SELFPAY | PROVIDERS: PCP Family Medicine; Visit Provider Registered Nurse Neonatal Intensive Care | DX: Z20.822 Contact with and (suspected) exposure to COVID-19 (principal) | CPT/HCPCS: 87635 ==

== ENCOUNTER → 2021-12-12 10:13 | Outpatient (BNVA) | payer MEDICAID, SELFPAY | PROVIDERS: PCP Family Medicine; Visit Provider Family Medicine | DX: S22.079A Unspecified fracture of T9-T10 vertebra, initial encounter for closed fracture (principal); M54.9 Dorsalgia, unspecified; E11.9 Type 2 diabetes mellitus without complications; L97.529 Non-pressure chronic ulcer of other part of left foot with unspecified severity; X58.XXXA Exposure to other specified factors, initial encounter | CPT/HCPCS: 81000 ==

== ENCOUNTER → 2022-02-04 16:22 | Outpatient (BNVA) | payer MEDICAID, SELFPAY | PROVIDERS: PCP Family Medicine; Visit Provider Family Medicine | DX: E11.9 Type 2 diabetes mellitus without complications (principal) | CPT/HCPCS: 83036 ==

== ENCOUNTER 2023-04-17 16:15 | Outpatient (CLI) | payer MEDICAID, SELFPAY ==
[2023-04-17 16:55] LABS: Estmated Average Glucose 306; Hemoglobin A1C 12.3 % (4.0-6.0)
== END 2023-04-17 16:16 | disposition home or self-care (01) ==
LOC: LAB 16:17
PROVIDERS: PCP Family Medicine; Visit Provider Nurse Practitioner
DX: E11.9 Type 2 diabetes mellitus without complications (principal)
CPT/HCPCS: 36415; 83036

== ENCOUNTER 2023-04-23 16:54 | Outpatient (CLI) | payer MEDICAID, SELFPAY ==
[2023-04-23 20:34] LABS: Estmated Average Glucose 301; Hemoglobin A1C 12.1 % (4.0-6.0)
== END 2023-04-23 16:55 | disposition home or self-care (01) ==
LOC: LAB 16:54
PROVIDERS: PCP Family Medicine; Visit Provider Nurse Practitioner
DX: E11.9 Type 2 diabetes mellitus without complications (principal)
CPT/HCPCS: 83036

== ENCOUNTER → 2024-01-12 15:10 | Outpatient (BNVA) | payer MEDICAID, SELFPAY | PROVIDERS: PCP Family Medicine; Visit Provider Family Medicine | DX: E11.9 Type 2 diabetes mellitus without complications (principal); N52.9 Male erectile dysfunction, unspecified; B37.0 Candidal stomatitis; N40.0 Benign prostatic hyperplasia without lower urinary tract symptoms; N39.3 Stress incontinence (female) (male) | CPT/HCPCS: 80053; 80061; 81003; 82043; 83036; 85025; G0103 ==